=== PATIENT | male | born 1940 | race Caucasian/White ===

== ENCOUNTER → 2018-08-08 12:18 | Outpatient (CLI) | payer OTHER, SELFPAY ==
--- NOTE | 2018-08-08 | DI.RAD.S_ITS ---
PROCEDURE: XR HIP W PEL IF DONE LT 2V INDICATIONS: LEFT HIP AND THIGH PAIN TECHNIQUE: 2 views of the hip were acquired. COMPARISON: [facility], CT, LUMBAR OR SACRAL SPINE WO CONT, 12/30/2016, 15:17. [facility], CR, [id number] W PEL IF PERFORMED, 06/04/2016, 16:22. FINDINGS: Bones: No fractures or dislocations. No suspicious bony lesions. The visualized pelvic ring appears intact. Soft tissues: No suspicious soft tissue calcifications or masses. IMPRESSION: Interval left total hip arthroplasty, no evidence of device loosening or disruption. Dictated by: Denys Lassiter M.D. on 08/08/2018 at 13:14 Approved by: Denys Lassiter M.D. on 08/08/2018 at 13:15
== END ==
PROVIDERS: Family Provider Internal Medicine; Visit Provider Internal Medicine
DX: M25.552 Pain in left hip (principal); M79.652 Pain in left thigh; Z96.642 Presence of left artificial hip joint
CPT/HCPCS: 73502

== ENCOUNTER 2019-07-11 16:17 | Emergency (ER) | payer OTHER, SELFPAY ==
[2019-07-11 16:35] VITALS: BP 118/67; PULSE 67; RESP 18; TEMP 36.3; O2SAT 97
--- NOTE | 2019-07-11 16:51 | ED.URI ---
HPI - URI/Sore Throat <Umm Perez PA-C - Last Filed: 07/11/19 20:22> General Chief Complaint: Upper Respiratory Symptoms Stated Complaint: runny nose, scratchy throat, wheezing, weakness Time Seen by Provider: 07/11/19 16:39 Source: patient Mode of arrival: Wheelchair Limitations: physical limitation History of Present Illness HPI Narrative: This 78-year-old gentleman comes to ED secondary to 3 day history postnasal drainage, chest congestion, and some of productive cough. He states that these symptoms do not seem acutely worse today however he feels worse in general, with increased fatigue, mild body aches. He describes a mild air hunger sensation where he has to concentrate on taking a deep breath, but he does not feel short of breath. He states he has noticed some intermittent wheeze. He denies any chest pain. He denies any new pain or swelling in his extremities. He denies any fever, chills, or sweats. He denies any nausea or vomiting, nor any abdominal pain and states his appetite is excellent. He denies any specific exposures or recent travel. He has nasal drainage but denies earache, sore throat, sinus pain/headache. PMH/PSH: 1. Acute ischemic CVA with left hemiplegia, mild dysarthria and dysphagia 2. Hyperlipidemia 3. Hypertension 4. Coronary artery disease 5. Porcine aortic valve 6. Insomnia 7. Status post hip fracture, partial hip replacement Related Data Home Medications Medication Instructions Recorded Confirmed [CO Q 10] #0 04/27/17 [PROBIOTIC] #0 04/27/17 aspirin 162 mg PO QDAY #0 10/05/17 atorvastatin [Lipitor] 20 mg PO HS #0 10/05/17 losartan [Cozaar] 50 mg PO QDAY #0 10/05/17 Previous Rx's Medication Instructions Recorded acetaminophen 325 - 650 mg PO Q6HP PRN #30 tab 09/14/16 amlodipine [Norvasc] 5 mg PO QDAY #30 tab 09/14/16 azithromycin [Zithromax] 250 - 500 mg PO QDAY #6 tab 10/05/17 benzonatate [Tessalon Perles] 100 mg PO TID #21 cap 10/05/17 albuterol sulfate 2 puff INHALATION Q4-6H PRN #8.5 07/11/19 gram codeine-guaifenesin 5 ml PO Q4-6H PRN #100 ml 07/11/19 Allergies Allergy/AdvReac Type Severity Reaction Status Date / Time No Known Drug Allergies Allergy Verified 07/11/19 16:47 Review of Systems <Umm Perez PA-C - Last Filed: 07/11/19 20:22> Review of Systems ROS Unobtainable: All systems reviewed & are unremarkable except as noted in HPI and below PFSH <Umm Perez PA-C - Last Filed: 07/11/19 20:22> Social History Smoking Status: Former smoker Social History Smoking Status: Former smoker Exam <Umm Perez PA-C - Last Filed: 07/11/19 20:22> Narrative Exam Narrative: GENERAL APPEARANCE: Patient sitting comfortably, in no distress. HEAD: No sinus TTP. EYES: PERRL, EOMI. EARS: Normal auditory canals, TMS intact dull light reflexes ORAL CAVITY: Normal oropharynx. THROAT: No erythema or exudate, copious PND noted NECK/THYROID: Neck supple, full range of motion, no cervical lymphadenopathy. LUNGS: Breath sounds mildly congested, no clear wheezes or crackles, rare cough on exam HEART: RRR with low-pitched III/ systolic murmur, normal S1 and S2, no S3 or S4 EXTREMITIES: No cyanosis, no calf tenderness DERMATOLOGIC: No exanthem NEUROLOGIC: Patient is alert and oriented with normal speech and coordination Initial Vital Signs Initial Vital Signs: Vital Signs Temperature 97.3 F L 07/11/19 16:35 Pulse Rate 67 07/11/19 16:35 Respiratory Rate 18 07/11/19 16:35 Blood Pressure 118/67 07/11/19 16:35 Pulse Oximetry 97 07/11/19 16:35 <Jamaal Daugherty DO - Last Filed: 07/12/19 07:46> Initial Vital Signs Initial Vital Signs: Vital Signs Temperature 97.3 F L 07/11/19 16:35 Pulse Rate 67 07/11/19 16:35 Respiratory Rate 18 07/11/19 16:35 Blood Pressure 118/67 07/11/19 16:35 Pulse Oximetry 97 07/11/19 16:35 Course <Umm Perez PA-C - Last Filed: 07/11/19 20:22> Course Additional Information: No evidence of recurrent pneumonia on chest x-ray. Patient is feeling significantly improved after nebulizer treatment. He was given a prescription for inhaler as well as codeine/guaifenesin to help with cough and perhaps sleep. Advised he can add antihistamine as needed for postnasal drip and this may help with sleep as well. He complains of chronic insomnia as well which I advised he should discuss with his PCP. He agreed to return if any acutely worsening symptoms over the weekend in the interim, otherwise will follow up with PCP early next week. Orders Ordered: Discontinued Medications Albuterol (Ventolin) 2.5 mg INH NOW ONE Stop: 07/11/19 17:58 Last Admin: 07/11/19 18:08 Dose: 2.5 mg Documented by: LUCRETIA Albuterol (Ventolin Hfa Prepack) 1 box [facility] [place] ONE Stop: 07/11/19 19:03 Last Admin: 07/11/19 19:04 Dose: 1 box Documented by: JACK Vital Signs Vital signs: Vital Signs - 8 hr 07/11/19 16:35 07/11/19 18:08 07/11/19 19:04 Temperature 97.3 F L Pulse Rate 67 62 Respiratory Rate 18 16 Blood Pressure 118/67 Pulse Oximetry 97 98 97 07/11/19 19:28 Temperature Pulse Rate 76 Respiratory Rate 18 Blood Pressure 139/63 Pulse Oximetry 97 <Jamaal Daugherty DO - Last Filed: 07/12/19 07:46> Orders Ordered: Discontinued Medications Albuterol (Ventolin) 2.5 mg INH NOW ONE Stop: 07/11/19 17:58 Last Admin: 07/11/19 18:08 Dose: 2.5 mg Documented by: LUCRETIA Albuterol (Ventolin Hfa Prepack) 1 box [facility]INSTR ONE Stop: 07/11/19 19:03 Last Admin: 07/11/19 19:04 Dose: 1 box Documented by: JACK Vital Signs Vital signs: Vital Signs - 8 hr 07/11/19 16:35 07/11/19 18:08 07/11/19 19:04 Temperature 97.3 F L Pulse Rate 67 62 Respiratory Rate 18 16 Blood Pressure 118/67 Pulse Oximetry 97 98 97 07/11/19 19:28 Temperature Pulse Rate 76 Respiratory Rate 18 Blood Pressure 139/63 Pulse Oximetry 97 MDM - URI/Sore Throat <Umm Perez PA-C - Last Filed: 07/11/19 20:22> Lab Data Attestation: I reviewed the patient's lab results. Result diagrams: 07/11/19 17:11 07/11/19 17:11 Labs: Lab Results 07/11/19 07/11/19 07/11/19 Range/Units 17:00 17:11 17:11 WBC 4.4 L (4.5-11.0) X10^3/uL RBC 4.14 L (4.5-5.9) X10^6/uL Hgb 13.1 L (13.5-17.5) g/dL Hct 37.4 L (41-53) % MCV 90.2 (80-100) fL MCH 31.7 (26-34) PG MCHC 35.1 (30-36) % RDW 13.4 (11.6-14.8) % Plt Count 175 (150-400) X10^3/uL Neut % (Auto) 60.3 (50-75) % Lymph % (Auto) 25.6 (25-40) % [place] % (Auto) 9.5 (3-14) % Eos % (Auto) 3.5 (2-4) % Baso % (Auto) 1.1 (0-2) % Neut # (Auto) 2700 (4048-0810) /uL Lymph # (Auto) 1100 (4149-4349) /uL [place] # (Auto) 400 (0-900) /uL Eos # (Auto) 200 (0-450) /uL Baso # (Auto) 0 (0-100) /uL Sodium 140 (137-145) mmol/L Potassium 3.9 (3.4-5.1) mmol/L Chloride 105 (98-107) mmol/L Carbon Dioxide 26 (22-32) mmol/L BUN 18 (9-20) mg/dL Creatinine 0.90 (0.66-1.25) mg/dL Estimated GFR > 60.0 (>60) mL/min BUN/Creatinine Ratio 20.0 (6-22) Glucose 100 (80-110) mg/dL Calcium 9.7 (8.4-10.2) mg/dL Total Bilirubin 0.5 (0.2-1.3) mg/dL AST 40 (17-59) IU/L ALT 26 (21-72) IU/L Alkaline Phosphatase 64 (38-126) U/L Total Protein 7.5 (6.3-8.2) g/dL Albumin 4.3 (3.5-5.0) g/dL Globulin 3.2 (1.7-4.1) g/dL Albumin/Globulin Ratio 1.3 (1.0-2.8) Influenza A & B (PCR) Negative (Negative) Imaging Data Chest x-ray: Radiologist's impression: [address] [address] XRay Report Signed Patient: Bautista Angel [facility]#: [id number] : 3Acct:[id number] Age/Sex: 78 / MDate of Service: 07/11/19 Loc: ED Accession Number: [id number] Procedure: XR chest 2V Ordering Provider: Umm Perez P.A-C PROCEDURE: XR CHEST 2V INDICATIONS: cough, weak, h/o pneumonia TECHNIQUE: 2 views of the chest were acquired. COMPARISON: [facility] , CHEST 1 VIEW, 12/17/2016, 7:02. FINDINGS: Surgical changes and devices: Postsurgical changes are redemonstrated in the mediastinum with disruption of 3 median sternotomy wires again noted. Lungs and pleura: Lungs are clear. No pleural effusions or pneumothorax. Mediastinum: Mediastinal contours are normal. Heart size is normal. Bones and chest wall: No suspicious bony abnormalities. Soft tissues appear unremarkable. IMPRESSION: 1. No acute cardiopulmonary disease. Dictated by: Juancho Leos M.D. on 07/11/2019 at 16:48 Approved by: Juancho Leos M.D. on 07/11/2019 at 16:49 <Jamaal Daugherty DO - Last Filed: 07/12/19 07:46> Lab Data Labs: Lab Results 07/11/19 07/11/19 07/11/19 Range/Units 17:00 17:11 17:11 WBC 4.4 L (4.5-11.0) X10^3/uL RBC 4.14 L (4.5-5.9) X10^6/uL Hgb 13.1 L (13.5-17.5) g/dL Hct 37.4 L (41-53) % MCV 90.2 (80-100) fL MCH 31.7 (26-34) PG MCHC 35.1 (30-36) % RDW 13.4 (11.6-14.8) % Plt Count 175 (150-400) X10^3/uL Neut % (Auto) 60.3 (50-75) % Lymph % (Auto) 25.6 (25-40) % [place] % (Auto) 9.5 (3-14) % Eos % (Auto) 3.5 (2-4) % Baso % (Auto) 1.1 (0-2) % Neut # (Auto) 2700 (0380-6789) /uL Lymph # (Auto) 1100 (3977-8017) /uL [place] # (Auto) 400 (0-900) /uL Eos # (Auto) 200 (0-450) /uL Baso # (Auto) 0 (0-100) /uL Sodium 140 (137-145) mmol/L Potassium 3.9 (3.4-5.1) mmol/L Chloride 105 (98-107) mmol/L Carbon Dioxide 26 (22-32) mmol/L BUN 18 (9-20) mg/dL Creatinine 0.90 (0.66-1.25) mg/dL Estimated GFR > 60.0 (>60) mL/min BUN/Creatinine Ratio 20.0 (6-22) Glucose 100 (80-110) mg/dL Calcium 9.7 (8.4-10.2) mg/dL Total Bilirubin 0.5 (0.2-1.3) mg/dL AST 40 (17-59) IU/L ALT 26 (21-72) IU/L Alkaline Phosphatase 64 (38-126) U/L Total Protein 7.5 (6.3-8.2) g/dL Albumin 4.3 (3.5-5.0) g/dL Globulin 3.2 (1.7-4.1) g/dL Albumin/Globulin Ratio 1.3 (1.0-2.8) Influenza A & B (PCR) Negative (Negative) Discharge Plan Departure Patient Disposition: Home Clinical Impression: Bronchitis Reactive airway disease Qualifiers: Asthma severity: mild Asthma persistence: intermittent Asthma complication type: with acute exacerbation Qualified Code(s): J45.21 - Mild intermittent asthma with (acute) exacerbation Discharge Date/Time: 07/11/19 19:28 Activity Restrictions/Additional Instructions: Based on your exam and lab work today, I think it is most likely that you have a viral infection/bronchitis causing your drainage, cough and chest congestion. Your chest x-ray did not show pneumonia. I have prescribed some codeine cough syrup with expectorant to help with the congestion and to help you sleep. Please remember that this can make you sleepy, no driving or other activities where you need to be alert. I have also prescribed an inhaler for you to use as needed for chest tightness or cough since the breathing treatment seemed to help you here. Please use that with the spacer as often as you need. If you find that your still having difficulty sleeping due to the postnasal drip and cough, you can also add a Benadryl tablet or [id number] Zyrtec tablet at bedtime. Please follow-up with your PCP next week for recheck and to determine what may be best for treating your chronic sleep difficulty as well. As we talked about, you should return here if you have any new or acutely worsening symptoms over the weekend such as high fever or difficulty breathing, or new chest pain. Prescriptions: New codeine-guaifenesin 10-200 mg/5 mL liquid 5 ml PO Q4-6H PRN (Reason: cough/chest congestion) Qty: 100 RF: 0 albuterol sulfate 90 mcg/actuation HFA aerosol inhaler 2 puff INHALATION Q4-6H PRN (Reason: cough/shortness of breath) Qty: 8.5 RF: 0 No Action acetaminophen 325 MG tablet 325 - 650 mg PO Q6HP PRNQty: 30 RF: 0 amlodipine [Norvasc] 5 MG tablet 5 mg PO QDAY Qty: 30 RF: 0 [CO Q 10] Qty: 0 RF: 0 [PROBIOTIC] Qty: 0 RF: 0 atorvastatin [Lipitor] 20 MG tablet 20 mg PO HS Qty: 0 RF: 0 losartan [Cozaar] 50 MG tablet 50 mg PO QDAY Qty: 0 RF: 0 aspirin 81 MG tablet,delayed release (DR/EC) 162 mg PO QDAY Qty: 0 RF: 0 azithromycin [Zithromax] 250 MG tablet 250 - 500 mg PO QDAY Qty: 6 RF: 0 benzonatate [Tessalon Perles] 100 MG capsule 100 mg PO TID Qty: 21 RF: 0 Referrals: Servando Walker MD [Primary Care Provider] -
--- NOTE | 2019-07-11 17:04 | DI.RAD.S_ITS ---
PROCEDURE: XR CHEST 2V INDICATIONS: cough, weak, h/o pneumonia TECHNIQUE: 2 views of the chest were acquired. COMPARISON: [facility], , CHEST 1 VIEW, 12/17/2016, 7:02. FINDINGS: Surgical changes and devices: Postsurgical changes are redemonstrated in the mediastinum with disruption of 3 median sternotomy wires again noted. Lungs and pleura: Lungs are clear. No pleural effusions or pneumothorax. Mediastinum: Mediastinal contours are normal. Heart size is normal. Bones and chest wall: No suspicious bony abnormalities. Soft tissues appear unremarkable. IMPRESSION: 1. No acute cardiopulmonary disease. Dictated by: Juancho Leos M.D. on 07/11/2019 at 16:48 Approved by: Juancho Leos M.D. on 07/11/2019 at 16:49
[2019-07-11 17:29] LABS: Add Manual Diff / Slide Review NO; Basophils Absolute Auto 0 /uL (0-100); Basophils Percent Auto 1.1 % (0-2); Eosinophils Absolute Auto 200 /uL (0-450); Eosinophils Percent Auto 3.5 % (2-4); Hematocrit 37.4 % (41-53); Hemoglobin 13.1 g/dL (13.5-17.5); Lymphocytes Absolute Auto 1100 /uL (1100-4500); Lymphocytes Percent Auto 25.6 % (25-40); Mean Corpuscular HGB Conc 35.1 % (30-36); Mean Corpuscular Hemoglobin 31.7 PG (26-34); Mean Corpuscular Volume 90.2 fL (80-100); Monocytes Absolute Auto 400 /uL (0-900); Monocytes Percent Auto 9.5 % (3-14); Neutrophils Absolute Auto 2700 /uL (1500-7000); Neutrophils Percent Auto 60.3 % (50-75); Platelet Count 175 X10^3/uL (150-400); Red Blood Cell Count 4.14 X10^6/uL (4.5-5.9); Red Cell Distribution Width 13.4 % (11.6-14.8); White Blood Cell Count 4.4 X10^3/uL (4.5-11.0)
[2019-07-11 17:42] LABS: Influenza A and B by PCR Rapid Negative (Negative)
[2019-07-11 17:54] LABS: Alanine Aminotransferase 26 IU/L (21-72); Albumin 4.3 g/dL (3.5-5.0); Albumin Globulin Ratio 1.3 (1.0-2.8); Alkaline Phosphatase 64 U/L (38-126); Aspartate Aminotransferase 40 IU/L (17-59); Bilirubin Total 0.5 mg/dL (0.2-1.3); Blood Urea Nitrogen 18 mg/dL (9-20); Calcium 9.7 mg/dL (8.4-10.2); Carbon Dioxide 26 mmol/L (22-32); Chloride 105 mmol/L (98-107); Estimated Glomerular Filt Rate > 60.0 mL/min (>60); Globulin 3.2 g/dL (1.7-4.1); Glucose 100 mg/dL (80-110); HEMOLYSIS < 15 (0-50); Potassium 3.9 mmol/L (3.4-5.1); Sodium 140 mmol/L (137-145); Total Protein 7.5 g/dL (6.3-8.2)
[2019-07-11 18:08] VITALS: PULSE 62; RESP 16; O2SAT 98
[2019-07-11] MEDS: ALBUTEROL 2.5 MG/3 ML NEB (ADULT) INH (18:08)
[2019-07-11 19:04] VITALS: O2SAT 97
[2019-07-11] MEDS: ALBUTEROL HFA PREPACK 1 BOX MISC (19:04)
[2019-07-11 19:28] VITALS: BP 139/63; PULSE 76; RESP 18; O2SAT 97
== END 2019-07-11 19:28 | disposition home or self-care (01) ==
PROVIDERS: Emergency Provider Internal Medicine; PCP Internal Medicine
DX: J40 Bronchitis, not specified as acute or chronic (principal); J45.21 Mild intermittent asthma with (acute) exacerbation
CPT/HCPCS: 36415; 71046; 80053; 85025; 87400; 94640; 99282; 99284; J7613

== ENCOUNTER 2019-12-30 15:08 | Observation (INO) | payer MEDICARE, SELFPAY ==
[2019-12-30] VITALS (10 sets, daily range): BP systolic 122–180; BP diastolic 59–87; PULSE 57–74; RESP 16–28; TEMP 36.3–37.4; O2SAT 96–99; BMI 34.4
--- NOTE | 2019-12-30 | DI.ECHO.S_ITS ---
[place]---------+ [facility] +---------+ : : [address] [place] [address] : : : : [id number] : : : : Phone: [phone] Echocardiogram Report + + :Name: PERICO LUNSFORD Study Date: 12/31/2019 Height: 70 in : :[facility] Weight: 240 lb : : Gender: Male BSA: 2.3 m2 : :: 1940 Age: 79 yrs BP: 131/64 mmHg: :Reason For Study: NATE : :Ordering Physician: Jose Miguel : :Hospitalist Performed By: Марина Mtz : :Referring: EDA BLOOM : + + Interpretation Summary The study quality was technically difficult. The left ventricular ejection fraction is normal. There are no obvious focal wall motion abnormalities noted but poor endocardial definition reduces the sensitivity for the detection of such. The right ventricle is normal in size and function. There is a bioprosthetic aortic valve. The prosthetic aortic valve is not well visualized. The aortic valve mean gradient is 28 mmHg. The peak aortic velocity is 3.5 m/sec.The peak aortic velocity on the previous exam was 3.1 m/sec. The valve type is not known but in some valves this gradient can be normal. Overall a severe obstruction is unlikely given stable gradients, DVI of 0.38 and jet contour. Procedure: A two-dimensional transthoracic echocardiogram with color flow and Doppler was performed. Comparison is made with the echocardiogram of 09/12/2016. The study quality was technically difficult. Left Ventricle: The left ventricle is normal in size. Left ventricular wall thickness is mildly increased. The ejection fraction is estimated to be 60- 65%. The left ventricular ejection fraction is normal. There are no obvious focal wall motion abnormalities noted but poor endocardial definition reduces the sensitivity for the detection of such. Diastolic parameters suggest a relaxation abnormality of the left ventricle, consistent with probable normal filling pressures. Right Ventricle: The right ventricle is normal in size and function. Atria: Both atria are normal in size. There is no Doppler evidence for an interatrial shunt. Mitral Valve: The mitral valve leaflets appear mildly thickened, but open well. There is mild mitral annular calcification. There is mild mitral regurgitation. Aortic Valve: There is a bioprosthetic aortic valve. The prosthetic aortic valve is not well visualized. The aortic valve mean gradient is 28 mmHg. The peak aortic velocity is 3.5 m/sec. The peak aortic velocity on the previous exam was 3.1 m/sec. No aortic regurgitation is present. Tricuspid Valve: The tricuspid valve is normal in structure and function. There is a trace or physiologic amount of tricuspid regurgitation. Pulmonary artery pressures cannot be estimated because of the lack of a measurable TR jet velocity. Pulmonic Valve: The pulmonic valve is not well visualized. Great Vessels: The aortic root is not well visualized. The ascending aorta could not be visualized. The inferior vena cava was not visualized. Pericardium/ Pleura There is no pericardial effusion. There is no pleural effusion. MMode/2D Measurements & Calculations LVIDd: 4.2 cm LVOT diam: 2.1 cm LVIDs: 3.1 cm Ao Arch Diam (Prox Trans): 2.9 cm FS: 25.6 % EPSS: 0.94 cm IVSd: 1.1 cm LVPWd: 1.2 cm LV rosales. diameter/BSA (cm/m^2): 1.9 LV sys. diameter/BSA (cm/m^2): 1.4 LA A2 area: 17.1 cm2 RA long axis: 5.2 cm LA A4 area: 15.1 cm2 RA area: 17.7 cm2 LA length (vol): 5.7 cm RA vol: 51.1 ml LA vol: 38.7 ml RA : 22.6 ml/m2 LA vol index: 17.2 ml/m2 RVD1 (basal): 3.8 cm TAPSE: 2.0 cm Doppler Measurements & Calculations Ao V2 max: 351.8 cm/sec LVOT Max Neto: 117.9 cm/sec Ao V2 mean: 244.9 cm/sec LV V1 max P.6 mmHg Ao max P.5 mmHg LV V1 VTI: 28.1 cm Ao mean P.1 mmHg ISAMAR(I,D): 1.3 cm2 Ao V2 VTI: 73.4 cm ISAMAR(V,D): 1.1 cm2 sev ratio: 0.38 ISAMAR indexed to BSA (cm^2/m^2): 0.56 MV A max neto: 81.2 cm/sec PA V2 max: 102.9 cm/sec Med Peak E' Neto: 48.4 cm/sec PA V2 mean: 64.3 cm/sec Lat Peak E' Neto: 10.7 cm/sec PA mean P.0 mmHg MV dec time: 0.28 sec PA Accel Time: 0.10 sec SV(LVOT): 93.1 ml Electronically signed by: Juan C Charles M.D. on Reading Physician:12/31/2019 11:55 AM
--- NOTE | 2019-12-30 15:13 | DI.CT.S_ITS ---
PROCEDURE: CT STROKE INDICATIONS: 45min Right hand and face numbness TECHNIQUE: Noncontrast 4.5 mm thick angled axial sections acquired from the foramen magnum to the vertex, with coronal reformats. For radiation dose reduction, the following was used: automated exposure control, adjustment of mA and/or kV according to patient size. COMPARISON: None. FINDINGS: Image quality: Excellent. CSF spaces: Basal cisterns are patent. No extra-axial fluid collections. The ventricles are symmetric in size and shape. Brain: No intracranial bleeds or masses. There is cerebral volume loss for age, with resultant ventricular and sulcal prominence. There are periventricular and deep white matter chronic small vessel ischemic changes. There is intracranial internal carotid artery atherosclerosis. Skull and face: Calvarium and visualized facial bones appear intact, without suspicious lesions. Status post left mastoidectomy. IMPRESSION: No acute intracranial process. Findings were personally telephoned and discussed with Dr. Panda in the emergency department at 1532 hrs 12/30/19. This study fulfills neurological imaging criteria for inclusion or exclusion of acute stroke therapies based on available published neurological guidelines. Dictated by: Joel Maxwell M.D. on 12/30/2019 at 15:29 Approved by: Joel Maxwell M.D. on 12/30/2019 at 15:35
--- NOTE | 2019-12-30 15:15 | ED.NEUROSD ---
HPI - Neuro Symptoms/Deficit General Chief Complaint: Neuro Symptoms/Deficit Stated Complaint: sudden right sided weakness Time Seen by Provider: 12/30/19 15:13 History of Present Illness HPI Narrative: 79-year-old gentleman with a history of an ischemic stroke with residual left sided weakness dysarthria and dysphagia, hyperlipidemia, hypertension, coronary artery disease, aortic valve replacement who presents with 45 minutes of right-sided hand and face numbness with clumsiness to the right hand. Code stroke was called. By time arrival in the emergency department he is having some numbness only to the dorsum of the right hand with no residual motor deficits. Related Data Home Medications Medication Instructions Recorded Confirmed CoQ-10 1 cap PO DAILY #0 04/27/17 12/30/19 Probiotic 1 cap PO DAILY #0 04/27/17 12/30/19 losartan [Cozaar] 50 mg PO DAILY #0 10/05/17 12/30/19 amlodipine [Norvasc] 5 mg PO DAILY 12/30/19 12/30/19 baclofen 10 mg PO QPM 12/30/19 12/30/19 cholecalciferol (vitamin D3) 5,000 unit PO DAILY 12/30/19 12/30/19 [Vitamin D3] [id number] 1 tab PO DAILY 12/30/19 12/30/19 [Multivitamin 50 Plus] rosuvastatin 10 mg PO DAILY 12/30/19 12/30/19 sertraline 50 mg PO QPM 12/30/19 12/30/19 Previous Rx's Medication Instructions Recorded acetaminophen 325 - 650 mg PO Q6HP PRN #30 tab 09/14/16 albuterol sulfate 2 puff INHALATION Q4-6H PRN #8.5 07/11/19 gram Allergies Allergy/AdvReac Type Severity Reaction Status Date / Time No Known Drug Allergies Allergy Verified 12/30/19 15:30 Review of Systems Review of Systems Narrative: Denies ? fever ? cough ? cold ? chills ? chest pain ? dyspnea ? orthopnea ? wheezing ? abdominal pain ? change to bowel or bladder habits ? nausea vomiting ? skin changes ? rashes Patient History Medical History (Updated 12/30/19 @ 17:36 by Shayna Panda MD) CVA (cerebral vascular accident) (Acute) Hyperlipidemia (Acute) Hypertension (Acute) Social History Smoking Status: Former smoker Smoking Status: Former smoker alcohol intake frequency: holidays/special occasions only Substance Use Type: does not use Exam Narrative Exam Narrative: General: Healthy appearing, in no acute distress. Able to give a complete and coherent history. Well-nourished well-developed HEENT: Moist mucous membranes, normal sclera with reactive pupils, Neck: No JVD, supple Respiratory: Lungs are clear to auscultation, no wheezing no rales no rhonchi. Full and symmetrical air movement Cardiac: Regular rate and rhythm no murmurs no bruits Abdomen: Soft nontender good bowel tones, no flank pain Skin: Warm and dry, no rashes Neurologic: Residual left arm and left leg weakness with normal sensation., no facial droop, no tongue deviation, no facial sensory deficits, he does note some minor numbness still to the dorsum of the right hand that begins just proximal to the wrist, there is no weakness in the right upper or lower extremity Extremities: No trauma, well perfused Psych: Cooperative, appropriate insight and affect Initial Vital Signs Initial Vital Signs: Vital Signs Temperature 97.5 F L 12/30/19 15:10 Pulse Rate 73 12/30/19 15:10 Respiratory Rate 28 H 12/30/19 15:10 Blood Pressure 146/71 H 12/30/19 15:10 Pulse Oximetry 98 12/30/19 15:10 Course Orders Ordered: ED Orders 12/30/19 15:13 CT Stroke Stat Urine Drug Screen, Rapid Stat EKG-12 Lead Stat 12/30/19 16:06 Basic Metabolic Panel Stat Complete Blood Count AUTO DIFF Stat Partial Thromboplastin Time Stat Prothrombin Time INR Stat Sodium Chloride (Normal Saline 0.9%) 1,000 mls @ 150 mls/hr IV CONT REYAN Vital Signs Vital signs: Vital Signs - 8 hr 12/30/19 15:10 Temperature 97.5 F L Pulse Rate 73 Respiratory Rate 28 H Blood Pressure 146/71 H Pulse Oximetry 98 MDM - Neuro Symptoms/Deficit Medical Records Attestation: I reviewed the patient's medical records. Lab Data Attestation: I reviewed the patient's lab results. Result diagrams: 12/30/19 16:06 12/30/19 16:06 Labs: Lab Results 12/30/19 12/30/19 12/30/19 Range/Units 16:06 16:06 16:06 WBC 5.6 (4.5-11.0) X10^3/uL RBC 4.37 L (4.5-5.9) X10^6/uL Hgb 13.9 (13.5-17.5) g/dL Hct 39.4 L (41-53) % MCV 90.2 (80-100) fL MCH 31.8 (26-34) PG MCHC 35.3 (30-36) % RDW 13.9 (11.6-14.8) % Plt Count 190 (150-400) X10^3/uL Neut % (Auto) 64.3 (50-75) % Lymph % (Auto) 20.7 L (25-40) % [place] % (Auto) 9.6 (3-14) % Eos % (Auto) 4.3 H (2-4) % Baso % (Auto) 1.1 (0-2) % Neut # (Auto) 3600 (2956-7206) /uL Lymph # (Auto) 1200 (7710-7622) /uL [place] # (Auto) 500 (0-900) /uL Eos # (Auto) 200 (0-450) /uL Baso # (Auto) 100 (0-100) /uL PT 12.4 (10.1-12.7) SECONDS INR 1.1 (0.9-1.3) APTT 29 (26.4-36.2) SECONDS Sodium 140 (137-145) mmol/L Potassium 4.0 (3.4-5.1) mmol/L Chloride 106 (98-107) mmol/L Carbon Dioxide 27 (22-32) mmol/L BUN 13 (9-20) mg/dL Creatinine 0.62 L (0.66-1.25) mg/dL Estimated GFR > 60.0 (>60) mL/min BUN/Creatinine Ratio 21.0 (6-22) Glucose 103 (80-110) mg/dL Calcium 9.9 (8.4-10.2) mg/dL Point of Care Testing Glucose POC [address] scan - head: Radiologist's Impression: IMPRESSION: No acute intracranial process. Findings were personally telephoned and discussed with Dr. Panda in the emergency department at 1532 hrs 12/30/19. This study fulfills neurological imaging criteria for inclusion or exclusion of acute stroke therapies based on available published neurological guidelines. Dictated by: Joel Maxwell M.D. on 12/30/2019 at 15:29 ECG Data Attestation: I personally reviewed and interpreted this ECG as follows: Interpretation: Sinus rhythm at a rate of 69 First-degree AV block with normal axis No acute ischemic findings MDM Narrative Medical decision making narrative: 79-year-old gentleman of still with residual left-sided deficits deficits from a stroke in 2016. TIA type symptoms with right facial weakness numbness right hand weakness and numbness now with only mild numbness to the dorsum of the right hand. Initial CT and lab work is unremarkable. Would like to admit him for continued workup and observation with a diagnosis of TIA. He is not anticoagulated. He could still be an excellent tPA candidate should he have worsening symptoms of stroke over the next 24 hours. Patient's primary care physician is Dr. Walker, he will be admitted to the hospitalist service [id number] case is reviewed with Dr. Parry, she accepts admission Discharge Plan Departure Patient Disposition: Admitted as Observation Clinical Impression: Transient cerebral ischemia Qualifiers: Transient cerebral ischemia type: unspecified Qualified Code(s): G45.9 - Transient cerebral ischemic attack, unspecified Referrals: Servando Walker MD [Primary Care Provider] -
[2019-12-30 16:18] LABS: Add Manual Diff / Slide Review NO; Basophils Absolute Auto 100 /uL (0-100); Basophils Percent Auto 1.1 % (0-2); Eosinophils Absolute Auto 200 /uL (0-450); Eosinophils Percent Auto 4.3 % (2-4); Hematocrit 39.4 % (41-53); Hemoglobin 13.9 g/dL (13.5-17.5); Lymphocytes Absolute Auto 1200 /uL (1100-4500); Lymphocytes Percent Auto 20.7 % (25-40); Mean Corpuscular HGB Conc 35.3 % (30-36); Mean Corpuscular Hemoglobin 31.8 PG (26-34); Mean Corpuscular Volume 90.2 fL (80-100); Monocytes Absolute Auto 500 /uL (0-900); Monocytes Percent Auto 9.6 % (3-14); Neutrophils Absolute Auto 3600 /uL (1500-7000); Neutrophils Percent Auto 64.3 % (50-75); Platelet Count 190 X10^3/uL (150-400); Red Blood Cell Count 4.37 X10^6/uL (4.5-5.9); Red Cell Distribution Width 13.9 % (11.6-14.8); White Blood Cell Count 5.6 X10^3/uL (4.5-11.0)
[2019-12-30 16:26] LABS: INR 1.1 (0.9-1.3); Prothrombin Time 12.4 SECONDS (10.1-12.7)
[2019-12-30 16:28] LABS: PTT Partial Thromboplastin Tim 29 SECONDS (26.4-36.2)
[2019-12-30 16:33] LABS: Blood Urea Nitrogen 13 mg/dL (9-20); Calcium 9.9 mg/dL (8.4-10.2); Carbon Dioxide 27 mmol/L (22-32); Chloride 106 mmol/L (98-107); Estimated Glomerular Filt Rate > 60.0 mL/min (>60); Glucose 103 mg/dL (80-110); HEMOLYSIS < 15 (0-50); Sodium 140 mmol/L (137-145)
[2019-12-30] MEDS: SODIUM CHLORIDE 0.9% 1,000 ML 150 ML IV ×2 (17:56→22:38)
--- NOTE | 2019-12-30 18:09 | PC.NURSE ---
patient had cva 4 years ago and it affected the left side of body.
[2019-12-30 19:09] LABS: UR Morphine/Opiate cutoff 300 Negative (Negative); Ur Creatinine Normal (Normal); Ur Specific Gravity Normal (Normal); Urine Amphetamines Negative (Negative); Urine Barbiturates Negative (Negative); Urine Benzodiazepines Negative (Negative); Urine Cocaine Negative (Negative); Urine MDMA Negative (Negative); Urine Methadone Negative (Negative); Urine Methamphetamines Negative (Negative); Urine Oxycodone Negative (Negative); Urine Phencyclidine Negative (Negative); Urine Tetrahydrocannabinol Negative (Negative); Urine Tricyclic Antidepressant Negative (Negative); Urine pH Normal (Normal)
[2019-12-30 20:09] LABS: Cholesterol 175 mg/dL (140-199); HDL Cholesterol 55 mg/dL (40-60); LDL Cholesterol Calculated 93 mg/dL (<100); Magnesium 2.2 mg/dL (1.6-2.3); Triglycerides 137 mg/dL (35-150)
[2019-12-30] MEDS: ASPIRIN 81 MG CHEW TAB 324 MG PO (20:57)
--- NOTE | 2019-12-30 21:55 | PM.HP.1 ---
History of Present Illness History of Present Illness Date Patient Seen: 12/30/19 Time Patient Seen: 21:35 Chief complaint: sudden right sided weakness Narrative: Mr. Bautista Angel is a 79-year-old male with a past medical history significant for prior CVA with left-sided weakness (2015), cardiovascular disease status post CABG x1, heart valve disease status post aortic valve replacement with porcine valve, hypertension, hyperlipidemia, vertigo and frequent falls presents to the ER after experiencing right-sided facial numbness and right hand numbness with impaired movement and dexterity and lightheadedness for 45 minutes. He denies headache or visual changes, nausea diaphoresis. The patient has a history of CV with residual left-sided weakness mild dysarthria and dysphagia. While in the ER the patient states his symptoms are diminishing but still present. The patient additionally reports that unbeknownst to him his had stopped giving him his aspirin for an unknown period of time. The patient denies recent illness nasal congestion sore throat or fevers. He states he has had chills for a long time. He denies complaints of chest pain or palpitations and has had no shortness of breath cough or wheezing. He denies abdominal pain, heartburn, nausea vomiting. He states he has had constipation in the past but has corrected that by drinking sufficient water. He does report difficulty urinating with difficulty starting and stopping a stream small voids and nocturia 6-8 times nightly. Patient has minimal motion of his left arm but is able to ambulate with a walker. Upon arrival the ER he is afebrile with temperature 97.5?, heart rate is 73, blood pressure 146/71, respirations of 18 saturating 98% on room air. Status CT of the head is obtained which finds no acute intracranial pathology, cerebral volume loss for age, periventricular and deep white matter chronic small vessel ischemic changes. Twelve lead EKG finds normal sinus rhythm with a first-degree AV block at [address] or T-wave changes. On laboratory analysis the patient has white count of 5.6, hemoglobin 13.9, hematocrit 39.4 and platelets of 190. On coagulation he has a PT of 12.4, INR 1.1 and a PTT of 29. His electrolytes are all within normal limits and has a BUN of 13 and creatinine 0.62. Nonfasting glucose is 103. Toxicology screening is negative. On 12/25/2019 the patient had a TSH of 5.76 and T4 of 1.22. No interventions were pursued in the ER the patient is admitted to the medicine service for TIA versus CVA. Patient History Medical History (Updated 12/31/19 @ 00:04 by CHATO Ellis) Coronary artery disease (Acute) CVA (cerebral vascular accident) (Acute) Fractured hip (Acute) Frequent falls (Acute) Heart valve disease (Acute) Hyperlipidemia (Acute) Hypertension (Acute) Vertigo (Acute) Surgical History (Updated 12/31/19 @ 00:04 by CHATO Ellis) H/O aortic valve replacement (Acute) History of coronary artery bypass graft x 1 (Acute) History of hip surgery (Acute) Family & Social History Family History (Updated 12/31/19 @ 00:06 by CHATO Ellis) Father Diabetes mellitus Hypertension Coronary artery disease Mother Coronary artery disease Heart attack Social History: household members spouse Prior Living Arrangements House Safety & Behavioral: Feels Safe in Current Yes Environment Been Physically Hurt or No Threatened By a Person Suicidal Ideation Description None Suicide Plan Description No Plan Tobacco & Substance use: Smoking Status Former smoker alcohol intake frequency holiday/special occasion Substance Use Type does not use Comment: The patient this with his to whom he has been for 27 years in a 2 level house with a ramp leading into the front door. Provides history is father having diabetes hypertension and coronary artery disease. His mother had cardiac disease and following an OK. Smoking: Patient quit smoking at age 32 before which she was smoking 3 packs per day. He stopped for many years and now smokes 1 cigar daily. Alcohol: The patient endorses consuming 4 alcoholic beverages per week. Substance use: The patient denies recreation pharmaceuticals herbal or cannabis products. Advanced directives: The patient states he has formal advanced directives and states his wish to be DO NOT RESUSCITATE/DO NOT INTUBATE. He designates his to be his surrogate decision maker. Meds Home Medications and Allergies Home Medications Medication Instructions Recorded Confirmed Type acetaminophen 325 - 650 mg PO Q6HP PRN #30 tab 09/14/16 12/30/19 Rx CoQ-10 1 cap PO DAILY #0 04/27/17 12/30/19 History Probiotic 1 cap PO DAILY #0 04/27/17 12/30/19 History losartan [Cozaar] 50 mg PO DAILY #0 10/05/17 12/30/19 History amlodipine [Norvasc] 5 mg PO DAILY 12/30/19 12/30/19 History baclofen 10 mg PO QPM 12/30/19 12/30/19 History cholecalciferol (vitamin D3) 5,000 unit PO DAILY 12/30/19 12/30/19 History [Vitamin D3] [id number] 1 tab PO DAILY 12/30/19 12/30/19 History [Multivitamin 50 Plus] rosuvastatin 10 mg PO DAILY 12/30/19 12/30/19 History sertraline 50 mg PO QPM 12/30/19 12/30/19 History Allergies Allergy/AdvReac Type Severity Reaction Status Date / Time No Known Drug Allergies Allergy Verified 12/30/19 15:30 Review of Systems Review of Systems ROS: Yes All systems reviewed with the patient and are negative except as otherwise documented Exam Vital Signs (past 8 hours): - 12/30/19 15:10 12/30/19 15:25 12/30/19 15:40 Temperature 97.5 F L Pulse Rate 73 74 71 Respiratory Rate 28 H 16 18 Blood Pressure 146/71 H Blood Pressure [Left Arm] 146/71 H 143/70 H Pulse Oximetry 98 98 98 12/30/19 16:30 12/30/19 17:31 12/30/19 18:00 Temperature Pulse Rate 63 68 63 Respiratory Rate 16 16 16 Blood Pressure Blood Pressure [Left Arm] 135/64 180/80 H 138/63 Pulse Oximetry 97 98 98 12/30/19 18:30 Temperature 99.4 F Pulse Rate 57 L Respiratory Rate 19 Blood Pressure 170/87 H Blood Pressure [Left Arm] Pulse Oximetry 99 Oxygen Delivery Method Room Air Oxygen Flow Rate 0 Narrative Exam Narrative: GENERAL APPEARANCE: well developed, obese male with a BMI of 34.8 who is sitting up in bed in no acute distress. HEENT: Symmetrical facies, no ptosis, PERRLA, conjunctiva clear and sclera is anicteric, EOMs intact without nystagmus, no rhinorrhea, mucous membranes are moist and pink without lesions or exudate. NECK/THYROID: neck supple, no JVD, no carotid bruit, no thyromegaly, trachea midline. LYMPH NODES: no cervical or supraclavicular lymphadenopathy. SKIN: Goodell, warm and dry, no visible lesions, rashes, ulcerations or petechiae. HEART: regular rate and rhythm, S1-S2, no murmur, no rubs or gallops, brisk capillary refill, no edema LUNGS: clear to auscultation bilaterally, no coarseness crackles or wheezing, no cough present CHEST: Symmetrical movement, no accessory muscle use, good tidal volume. ABDOMEN: Soft, no distention, no abdominal tenderness, no guarding or peritoneal signs, no organomegaly, no flank or suprapubic tenderness, active bowel tones. BACK: Normal curvature, nontender to palpation, no CVA tenderness on percussion EXTREMITIES: Weakness with decreased range of motion left arm at the shoulder and elbow, no contractures, weak left leg left. NEUROLOGIC: AAO x4, briskly responsive, no aphasia, mild dysarthria, cranial nerves II-XII grossly intact, diminished sensation right arm and leg, diminished dexterity without ataxia of the right hand or leg, hearing grossly normal to speech. PSYCH: Good judgment, good insight, linear thought process, cooperative, appropriate with stable behavior Objective Labs Result Diagrams: 12/30/19 16:06 12/30/19 16:06 Labs: Laboratory Results - last 24 hr 12/30/19 12/30/19 12/30/19 16:00 16:06 16:06 WBC 5.6 RBC 4.37 L Hgb 13.9 Hct 39.4 L MCV 90.2 MCH 31.8 MCHC 35.3 RDW 13.9 Plt Count 190 Neut % (Auto) 64.3 Lymph % (Auto) 20.7 L [place] % (Auto) 9.6 Eos % (Auto) 4.3 H Baso % (Auto) 1.1 Neut # (Auto) 3600 Lymph # (Auto) 1200 [place] # (Auto) 500 Eos # (Auto) 200 Baso # (Auto) 100 PT 12.4 INR 1.1 APTT 29 Sodium Potassium Chloride Carbon Dioxide BUN Creatinine Estimated GFR BUN/Creatinine Ratio Glucose Calcium Magnesium Triglycerides Cholesterol LDL Cholesterol, Calc HDL Cholesterol U Opiates 300ng/mL cut Negative Ur Oxycodone Screen Negative Urine Methadone Screen Negative Ur Barbiturates Screen Negative U Tricyclic Antidepress Negative Ur Phencyclidine Scrn Negative Ur Amphetamines Screen Negative U Methamphetamines Scrn Negative Ur MDMA Scrn (Ecstasy) Negative U Benzodiazepines Scrn Negative Urine Cocaine Screen Negative U Marijuana (THC) Screen Negative 12/30/19 12/30/19 12/30/19 16:06 16:06 16:06 WBC RBC Hgb Hct MCV MCH MCHC RDW Plt Count Neut % (Auto) Lymph % (Auto) [place] % (Auto) Eos % (Auto) Baso % (Auto) Neut # (Auto) Lymph # (Auto) [place] # (Auto) Eos # (Auto) Baso # (Auto) PT INR APTT Sodium 140 Potassium 4.0 Chloride 106 Carbon Dioxide 27 BUN 13 Creatinine 0.62 L Estimated GFR > 60.0 BUN/Creatinine Ratio 21.0 Glucose 103 Calcium 9.9 Magnesium 2.2 Triglycerides 137 Cholesterol 175 LDL Cholesterol, Calc 93 HDL Cholesterol 55 U Opiates 300ng/mL cut Ur Oxycodone Screen Urine Methadone Screen Ur Barbiturates Screen U Tricyclic Antidepress Ur Phencyclidine Scrn Ur Amphetamines Screen U Methamphetamines Scrn Ur MDMA Scrn (Ecstasy) U Benzodiazepines Scrn Urine Cocaine Screen U Marijuana (THC) Screen Assessment & Plan Assessment & Plan narrative: 1. TIA, probable CVA, present on admission, active. Patient presents to the ER following 45 minutes of right-sided facial numbness, right hand numbness and loss of dexterity with associated lightheadedness. Patient denies headache, visual changes, nausea or diaphoresis. He reports symptoms have improved but persist. 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 NIH score is 7 with pre-existing left-sided weakness and dysarthria. Patient reports that his had stopped his aspirin without his knowledge, does not know for how long. -Ordered aspirin 324 mg chewed now, continue aspirin 81 mg daily. -Physical Occupational and Speech therapy to consult evaluate and treat. -Ordered MRI stroke protocol, patient has porcine prosthetic heart valve. -Ordered echocardiogram. -Will check TSH with morning labs. 2. Hyperlipidemia, chronic, present on admission, active. -Patients cholesterol today: Total cholesterol 175, triglycerides 137, LDL 93 and HDL 55. -Will increase the patient's uses an statin dose to target reduction in LDL, ordered rosuvastatin 20 mg daily. 3. Benign prostatic hypertrophy with lower urinary tract symptoms, present on admission, active. -Patient complains of difficulty urinating with weak urinary stream, voiding stopping and revoiding, difficulty starting and stopping, dribbling, and nocturia 6-8 times nightly. He describes feeling the need to void and the sense of incomplete emptying. -will obtain urinalysis -will start tamsulosin 0.4 mg daily 4. Essential hypertension, present on admission, stable. -Patient has slightly elevated blood pressure on arrival to the ER at 146/71. Later on the floor the blood pressure is 122/59. -Will continue patient's home regimen of amlodipine 5 mg daily and losartan 50 mg daily. 5. Muscle spasticity, chronic, stable. -Will continue patient's home regimen of baclofen 10 mg daily. VTE prophylaxis: Bilateral SCDs and enoxaparin IV fluid: Saline lock Diet: Heart healthy low-sodium The patient is admitted to the hospital for further evaluation and monitoring of his no neurological deficits. Patient is admitted as observation with expected length of stay to be less than 2 midnights. Scores GCS [place] coma scale eye opening: Spontaneous [place] coma scale verbal response: Orientated Nancy coma scale motor response: Obey commands Nancy coma scale total score: 15 NIHSS Level of Conciousness: Alert, keenly responsive Ask month/age: Answers both questions correctly. Open/close eyes, close hand: Performs both tasks correctly Best gaze horizontal: Normal Visual castellanos: No visual loss Facial palsy: Normal symetrical movement Left arm drift: Some effort against gravity, cannot maintain, drifts down to bed Right arm drift: No drift for full 10 sec Left leg drift: Some effort against gravity, cannot maintain, drifts down to bed Right leg drift: No drift for full 5 sec Limb ataxia: Present in one limb Sensory on face/arms/legs: Mild to moderate sensory loss, can tell touch Best language: No aphasia, normal Dysarthria: Mild to mod,some slurring Extinction or inattention: No abnormality Total NIH Stroke scale score: 7 Quality VTE Deep Vein Thrombosis/Pulmonary Embolism Present on Admission: Yes
[2019-12-30] MEDS: TAMSULOSIN 0.4 MG CAPSULE PO (22:37)
[2019-12-31] VITALS (7 sets, daily range): BP systolic 123–142; BP diastolic 60–77; PULSE 63–94; RESP 16–20; TEMP 35.9–36.7; O2SAT 96–99
[2019-12-31 04:30] LABS: WBC Urine None Seen (0-5/HPF)
[2019-12-31 04:33] LABS: Appearance Urine UA CLEAR; Bilirubin Urine UA NEGATIVE (NEGATIVE); Color Urine UA YELLOW; Glucose Urine UA NEGATIVE (Negative); Ketones Urine UA NEGATIVE (NEGATIVE); Leukocyte Esterase Urine UA NEGATIVE (NEGATIVE); Nitrite Urine UA NEGATIVE (Negative); Occult Blood Urine UA NEGATIVE (Negative); Protein Urine UA NEGATIVE (Negative); Urobilinogen Urine UA 0.2 E.U./dL (0.2); pH Urine UA 5.5 (4.5-8.0)
[2019-12-31 04:41] LABS: Bacteria Urine Occasional (0-1); Culture Indicated Urine Cult Not Indicated; RBC Urine 0-1/HPF (0-5/HPF)
--- NOTE | 2019-12-31 05:12 | PC.NURSE ---
Right sided weakness is new for patient, although he feels it is resolving. Left sided weakness and left arm contracture at baseline from previous stoke. NIH=8 UA sent. Voiding in urinal, clear dark yellow urine. No pain Tele: NSR, 1st AVB; Heart murmur noted. denies chest pain B/L SCDs on
[2019-12-31 06:09] LABS: Add Manual Diff / Slide Review NO; Basophils Absolute Auto 0 /uL (0-100); Basophils Percent Auto 0.9 % (0-2); Eosinophils Absolute Auto 300 /uL (0-450); Eosinophils Percent Auto 5.1 % (2-4); Hematocrit 36.6 % (41-53); Hemoglobin 12.8 g/dL (13.5-17.5); Lymphocytes Absolute Auto 1100 /uL (1100-4500); Lymphocytes Percent Auto 20.6 % (25-40); Mean Corpuscular Hemoglobin 31.6 PG (26-34); Mean Corpuscular Volume 90.3 fL (80-100); Monocytes Absolute Auto 500 /uL (0-900); Monocytes Percent Auto 8.9 % (3-14); Neutrophils Absolute Auto 3400 /uL (1500-7000); Neutrophils Percent Auto 64.5 % (50-75); Platelet Count 166 X10^3/uL (150-400); Red Blood Cell Count 4.05 X10^6/uL (4.5-5.9); Red Cell Distribution Width 13.5 % (11.6-14.8); White Blood Cell Count 5.3 X10^3/uL (4.5-11.0)
[2019-12-31 06:38] LABS: BUN Creatinine Ratio 14.7 (6-22); Blood Urea Nitrogen 10 mg/dL (9-20); Calcium 9.5 mg/dL (8.4-10.2); Carbon Dioxide 27 mmol/L (22-32); Chloride 109 mmol/L (98-107); Estimated Glomerular Filt Rate > 60.0 mL/min (>60); Glucose 106 mg/dL (80-110); HEMOLYSIS < 15 (0-50); Sodium 140 mmol/L (137-145)
[2019-12-31] MEDS: ENOXAPARIN 40 MG/0.4 ML SYRINGE SUBCUT (09:51)
[2019-12-31] MEDS: ROSUVASTATIN 10 MG TABLET 20 MG PO (09:51)
[2019-12-31] MEDS: TAMSULOSIN 0.4 MG CAPSULE PO (09:51)
[2019-12-31] MEDS: LOSARTAN 50 MG TABLET PO (09:51)
[2019-12-31] MEDS: ASPIRIN EC 81 MG TABLET PO (09:51)
[2019-12-31] MEDS: AMLODIPINE 5 MG TABLET PO (09:51)
--- NOTE | 2019-12-31 10:30 | CM.DANOTE ---
DCP assessment: EMR Reviewed: Patient is a 79 yr old male who was admitted for possible TIA- Patients PCP is Dr Walker. CM/RN met with patient and family at the bedside and explained Role. Patient was alert and oriented x3 at time of CM meeting. Patient is independent at baseline but patients does all the driving. Patient walks with a cane or a walker due to left sided weakness from previous TIA. Patient had an Echo this morning and is waiting on an MRI and PT/ OT evaluation. Patient currently lives in a two story home but has ramp into the home and has no need to go to second story according to . I: [employer] MCR and self pay P: D/C home when medically stable with his . No identified D/C planning needs noted at this time. CM department will continue to follow and assist with any D/C planning needs that may arise. Irish Barnard RN Discharge Planning/Care Management Advanced directive, confirm from FAMILY Start: 12/30/19 19:24 Freq: Q24H Status: Active Protocol: Document 12/30/19 19:24 AKP (Rec: 12/30/19 19:25 AK [id number]) Advance Directive, confirm on record Time 19:25 Person contacted Linette Copy received No CM Discharge Assessment Start: 12/31/19 10:29 Freq: Status: Active Protocol: Document 12/31/19 10:29 HS (Rec: 12/31/19 10:30 HS [id number]) Discharge Planning Assessment Assigned Web Art Director Irish Barnard RN DPOA/Assigned Designee Name Annelise Angel () Contact Information [phone] Advance Directives? Yes History Provided By Patient,Significant Other, Medical Record Has Patient been admitted in last 30 No days? Prior Living Arrangements House Household Members spouse Type of transporation used prior to Relies on Others admit Independent with ADL's Yes Is patient alert and oriented? Yes Caregiver for Another No DME Already Rented / Owned FWW / Walker,Cane Barriers to Discharge No Discharge Plan Home Referrals Initiated None needed Whiteboard Updated in Patient Room with Yes name and ext. # of Web Art Director Review Status In Process Next Review Type Continued Stay Review
--- NOTE | 2019-12-31 11:14 | PT.IIE ---
Surgical History (Last Updated 12/31/19 @ 00:04 by CHATO Ellis) H/O aortic valve replacement (Acute) History of coronary artery bypass graft x 1 (Acute) History of hip surgery (Acute) Medical History (Last Updated 12/31/19 @ 00:04 by CHATO Ellis) Coronary artery disease (Acute) CVA (cerebral vascular accident) (Acute) Fractured hip (Acute) Frequent falls (Acute) Heart valve disease (Acute) Hyperlipidemia (Acute) Hypertension (Acute) Vertigo (Acute) Physical Therapy Inpatient Evaluation/Re-Eval M1 PT/OT-IP Prior Functional Status Start: 12/31/19 12:36 Freq: NEEDED Status: Active Protocol: Document 12/31/19 11:14 AB (Rec: 12/31/19 13:04 AB [id number]) Medical Review Prior Functional Status Medical History Reviewed Yes Communication able to make needs known Mobility and Gait pt stated that he is modified independent with bed mobility using R bed cane, occasionally assist from spouse for sit to stand transfers, able to ambulate using a quad cane but has not been walking much but uses a power w/c indoors and a power scooter outdoors. stated that at one point he was able to ambulate ~ 50 ft but has been getting weaker and unable to walk much lately. Social History Household Members spouse Living Arrangements House Number of Floors (Floors) Two Floors Number of Stairs To Enter/Railing? ramp to enter pt stays on main level of the house Home Environment High Toilet,Walk in Shower, Ramp Home Equipment Quad Cane,Shower Seat without Backrest,Hand Held Shower,Grab Bars Near Toilet,Grab Bars In Shower Additional Social History Comment spouse stated that they just bought an upright walker M2 PT-IP Current Condition Start: 12/31/19 12:36 Freq: NEEDED Status: Active Protocol: Document 12/31/19 11:14 AB (Rec: 12/31/19 13:04 AB [id number]) Physical Therapy Current Condition Current Condition Evaluation Date 12/31/19 Treatment Diagnosis TIA; difficulty in walking Onset Date 12/30/2019 Precautions Other Precautions falls M3 PT-IP Subjective Start: 12/31/19 12:36 Freq: NEEDED Status: Active Protocol: Document 12/31/19 11:14 AB (Rec: 12/31/19 13:04 AB [id number]) Subjective Physical Therapy Visit Type Type Initial Evaluation Visit Start Time 11:14 Visit Stop Time 11:55 Total Visit Minutes 41 Number of PAY AGENT Visits 0 Physical Therapy Visit Comments Patient Comments pt agreeable to do PT M4 PT-IP Mobility and Gait Start: 12/31/19 12:36 Freq: NEEDED Status: Active Protocol: Document 12/31/19 11:14 AB (Rec: 12/31/19 13:04 AB [id number]) PT-Bed Mobility Assessment Supine to Sit Supine to Sit Contact Guard Assistance, Bedrails PT-Transfer Assessment Sit to and From Stand Sit to and from Stand Maximum Assistance,2 Person Assistance,Use of Upper Extremities Equipment Transfer Assistive Device Gait Belt,Large Based Quad Cane Orthotic/Prosthetic Devices or Brace: No Transfers Transfer Destination Chair Transfer Technique ambulated using LBQC Transfer Ability Level of Assist Moderate Assistance,Maximum Assistance,1 Person Assistance ,Use of Upper Extremities Comments Mobility Comments pt stated that he has a R side bedcane to assist him with bed mobility. completed supine to sit using bed cane CGA and cues. demonstrate difficulty in completing the task and requires increase time to complete. pt completed sit to stand from EOB max A and cues. pt requires max A to stabilize RLE. pt ambulated towards the chair using LBQC mod to max A and cues. requires assist with weight shifting to assist with RLE propulsion/elevation . pt required mod to max A for controlled descent on the chair. completed sit to stand from the chair max A x 2 and max cues. positioned pt on chair. call light and table placed within reach. informed pt and spouse regarding level of assistance and for safe home d/c plan. spouse stated that her brother lives with them and can assist pt as well. Gait Assessment Gait Gait Assistance Required: Moderate Assistance,Maximum Assistance,1 Person Assist Distance (Feet) 12 Able to Maintain Weight Bearing Status Yes During Gait Assistive Devices Assistive Device Gait Belt,Large Based Quad Cane Orthotic/Prosthetic Devices or Brace: No Gait Deviations General Gait Pattern Antalgic,Decreased Stride Length,Decreased Feet Clearance,Lateral Trunk Lean, Step-to Gait Factors Limiting Gait Function Factors Limiting Gait Function Abnormal Tonal Influences, Decreased Activity Tolerance, Decreased Sensation,Decreased Strength,Difficulty Following Directions,Incoordination, Limited Range of Motion,Poor Balance,Poor Safety Awareness Comments Gait Comments pt presents with increase extensor tone on LLE. pt ambulated using LBQC mod to max A and max cues. presents with increase forwards flexion during standing, decreas knee flexion during swing phase. UE elbow also in flexed positiion during standing. PT-Balance Assessment Sitting Balance and Reactions Static Sitting Balance Ability Good Dynamic Sitting Balance Ability Fair Standing Balance and Reactions Static Standing Balance Ability Poor Dynamic Standing Balance Ability Poor Device Used LBQC M5 PT-IP Objective Assessments Start: 12/31/19 12:36 Freq: NEEDED Status: Active Protocol: Document 12/31/19 11:14 AB (Rec: 12/31/19 13:04 AB [id number]) Orientation Orientation/Cognition Level of Alertness Alert Orientation Name,Place,Situation Gross Range of Motion Lower Extremity ROM Assessment Left Impaired Impairments increase LLE extensor tone affecting AROM Strength Lower Extremity Strength Assessment Left Impaired Sensation Assessment Sensation Gross Sensation Left UE Impaired,Left LE Impaired Light Touch Impaired Proprioception (Position) Impaired Muscle Tone Muscle Tone WNL Yes Muscle Tone Location Left Lower Extremity Type of Tone Rigidity Severity of Tone Moderate M6 PT-IP Treatment Start: 12/31/19 12:36 Freq: NEEDED Status: Active Protocol: Document 12/31/19 11:14 AB (Rec: 12/31/19 13:04 AB [id number]) Physical Therapy Treatment Exercises Exercises Heel Slides Education Education Provided Precautions,Safety Other Treatments Other Treatment Performed completed L hip/knee flexion prior to mobility M7 PT-IP Assessment and Plan Start: 12/31/19 12:36 Freq: NEEDED Status: Active Protocol: Document 12/31/19 11:14 AB (Rec: 12/31/19 13:04 AB [id number]) PT Summary Assessment and Plan Potential Rehabilitation Potential Good Status of Condition at Evaluation Evolving Summary Impairments Pain,ROM,Strength,Balance, Coordination,Sensation,Tone, Cognition,Bed Mobility, Transfers,Gait,Activity Tolerance Assessment Summary pt requiring 2 person assist with transfers at this time and spouse stated that there can be 2 person at home to assist pt. pt also stated that he can stand better with tennis shoes on. will assess mobility next tx session with tennis shoes on. d/c plan depending on assistance that spouse will be able to provide and will complete caregiver training when appropriate. Pt will benefit from homehealth PT if safe to go home. will continue to assess progress. Goals Bed Mobility Goal Standby Assistance Transfer Goal Standby Assistance,Cane Gait Goal Standby Assistance,Cane Gait Distance 40 Days to Meet Goals 5 Frequency of Treatment Frequency Of Treatment Twice a Day Treatment Plan Physical Therapy Treatment Plan Bed Mobility Training,Transfer Training,Gait Training, Therapeutic Exercise,Balance Retraining,Discharge Planning, Neuromuscular Re-ed, Coordination Retraining,Manual Therapy Recommendations To Nursing Amount of Assist Needed 2 Person Assist Discharge Recommendations PT Discharge Recommendations Home with 24/7 Assist,Home Health Transportation Needs at Discharge Private Vehicle
--- NOTE | 2019-12-31 11:22 | PC.NURSE ---
Assess- Patient is alert and oriented 3. 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 NIH stroke scale a 2 this morning. Patient able to lift both of his arms up without drift, as well as both legs. His smile is symmetrical and speech clear. Ambulating with one/two people with a walker. He does not seem to have any memory deficits that this time. Tolerating a general diet, o issues with choking. He is working with physical therapy at this time and occupational therapy.
--- NOTE | 2019-12-31 11:28 | OT.IP.EVAL ---
Past Medical History (Last Updated 12/31/19 @ 00:04 by CHATO Ellis) Coronary artery disease (Acute) CVA (cerebral vascular accident) (Acute) Fractured hip (Acute) Frequent falls (Acute) Heart valve disease (Acute) Hyperlipidemia (Acute) Hypertension (Acute) Vertigo (Acute) Surgical History (Last Updated 12/31/19 @ 00:04 by CHATO Ellis) H/O aortic valve replacement (Acute) History of coronary artery bypass graft x 1 (Acute) History of hip surgery (Acute) Occupational Therapy Inpatient Evaluation/Re-Eval M1 PT/OT-IP Prior Functional Status Start: 12/31/19 12:36 Freq: NEEDED Status: Active Protocol: Document 12/31/19 11:14 AB (Rec: 12/31/19 13:04 AB [id number]) Medical Review Prior Functional Status Medical History Reviewed Yes Communication able to make needs known Mobility and Gait pt stated that he is modified independent with bed mobility using R bed cane, occasionally assist from spouse for sit to stand transfers, able to ambulate using a quad cane but has not been walking much but uses a power w/c indoors and a power scooter outdoors. stated that at one point he was able to ambulate ~ 50 ft but has been getting weaker and unable to walk much lately. Social History Household Members spouse Living Arrangements House Number of Floors (Floors) Two Floors Number of Stairs To Enter/Railing? ramp to enter pt stays on main level of the house Home Environment High Toilet,Walk in Shower, Ramp Home Equipment Quad Cane,Shower Seat without Backrest,Hand Held Shower,Grab Bars Near Toilet,Grab Bars In Shower Additional Social History Comment spouse stated that they just bought an upright walker M1 PT/OT-IP Prior Functional Status Start: 12/31/19 14:02 Freq: NEEDED Status: Active Protocol: Document 12/31/19 11:14 [facility] (Rec: 12/31/19 14:26 [facility] [id number]) Medical Review Prior Functional Status Medical History Reviewed Yes Communication able to make needs known Mobility and Gait pt stated that he is modified independent with bed mobility using R bed cane, occasionally assist from spouse for sit to stand transfers, able to ambulate using a quad cane but has not been walking much but uses a power w/c indoors and a power scooter outdoors. stated that at one point he was able to ambulate ~ 50 ft but has been getting weaker and unable to walk much lately. Activities of Daily Living and IADL's Pt states prior able to do dressing on his own with use of chief quality officer and sock aid, however takes him a long time and ends up just assisting him. Pt states independent to toilet himself as well. Pt's assists with showering for pt. Social History Household Members spouse Living Arrangements House Number of Floors (Floors) Two Floors Number of Stairs To Enter/Railing? ramp to enter pt stays on main level of the house Home Environment High Toilet,Walk in Shower, Ramp Home Equipment Quad Cane,Power Wheelchair/ Scooter,Shower Seat without Backrest,Hand Held Shower,Grab Bars Near Toilet,Grab Bars In Shower Additional Social History Comment spouse stated that they just bought an upright walker M2 OT-IP Current Condition Start: 12/31/19 14:02 Freq: Status: Active Protocol: Document 12/31/19 11:14 [facility] (Rec: 12/31/19 14:26 [facility] [id number]) Occupational Therapy Current Condition Current Condition Evaluation Date 12/31/19 Treatment Diagnosis TIA, decreased mobility Diagnosis Onset Date 12/31/19 Weight Bearing Status Weight Bearing Status Weight Bear as Tolerated M3 OT- IP Subjective and Pain Start: 12/31/19 14:02 Freq: Status: Active Protocol: Document 12/31/19 11:14 [facility] (Rec: 12/31/19 14:26 [facility] [id number]) OT- Subjective Occupational Therapy Visit Type Type Initial Evaluation Visit Start Time 11:14 Visit Stop Time 11:58 Total Visit Minutes 44 Occupational Therapy Visit Comments Patient Comments Pt willing to get up and pt's in the room. Patient/Caregiver Goals To go home. OT Pain Assessment Pain When Pain Assessed At Rest Pain Present Pain Present Denied Pain M4 OT- IP ADL's Start: 12/31/19 14:02 Freq: Status: Active Protocol: Document 12/31/19 11:14 [facility] (Rec: 12/31/19 14:26 [facility] [id number]) OT DSS-[id number]-Gfkdhnf Comments OT Self-Feeding Comments Not at meal time. OT ADL-Grooming Comments OT Grooming Comments Pt states to do later. OT ADL-Oral Care Comments Oral Care Comments Not performed. OT ADL-Dressing General Eval Lower Body Dressing Ability Maximum Assistance Areas Needing Assistance Socks OT ADL-Toileting Comments OT Toileting Comments Pt not having to go at this time. M5 OT- IP IADL's Start: 12/31/19 14:02 Freq: Status: Active Protocol: Document 12/31/19 11:14 [facility] (Rec: 12/31/19 14:26 [facility] [id number]) OT-Instrumental Activities of Daily Living Meal Preparation Meal Preparation Caregiver Provides Assist Puffer Tender Puffer Tender Caregiver Provides Assist Driving Driving Caregiver Provides Assist M6 OT- IP Functional Cognition Start: 12/31/19 14:02 Freq: Status: Active Protocol: Document 12/31/19 11:14 [facility] (Rec: 12/31/19 14:26 [facility] [id number]) Cognitive Factors Limiting Selfcare Function Cognitive Ability Level of Alertness Alert Patient Orientation Name,Place,Situation Attention Span Ability Capable of Focused Attention, Capable of Sustained Attention Ability to Follow Commands Able to Follow One Step Commands Safety Awareness Underestimates Need for Assistance Cognitive Comments Cognitive Assessment Comments Pt able to follow one step commands. Pt needing vc for safety to stand up taller when trying to walk with quad cane . Pt feels that he will be okay at home due to having much equipment for his needs and also in addition to his , another person at home to help at all times. OT- Vision and Hearing OT- Hearing Assessment OT- Hearing Assessment WFL OT- Vision Assessment Visual Acuity WFL M7 OT- IP Mobility and Balance Start: 12/31/19 14:02 Freq: Status: Active Protocol: Document 12/31/19 11:14 [facility] (Rec: 12/31/19 14:26 [facility] [id number]) OT- Bed Mobility Assessment Supine to Sit Supine to Sit Assist Contact Guard Assistance,1 Person Assistance OT-Transfer Assessment Sit to and From Stand Sit to and from Stand Maximum Assistance,2 Person Assistance Transfers Transfer Ability Moderate Assistance,Maximum Assistance,1 Person Assistance Technique Transfer Destination Bed,Chair Transfer Technique Stand Step Pivot Devices Transfer Assistive Devices Large Based Quad Cane Comments Mobility Comments CGA with use of bed rail as pt has a bed cane at home. MAX A X 2 to stand, pt states uses shoes at home which makes it easier to stand. Pt's left knee needed to blocked in order to stand. Pt states uses lift chair at home to help stand . In addition another family member present at home to assist , as currently pt needing two person assist to help to stand . MODA /MAX A x1 taking a few steps with PT with quad cane. At home pt have a motorized wc to get around. OT- Balance Assessment Sitting Balance and Reactions Static Sitting Balance Ability Good Dynamic Sitting Balance Ability Fair Standing Balance and Reactions Static Standing Balance Ability Poor Dynamic Standing Balance Ability Poor M8 OT- IP Objective Assessments Start: 12/31/19 14:02 Freq: Status: Active Protocol: Document 12/31/19 11:14 [facility] (Rec: 12/31/19 14:26 [facility] [id number]) OT Gross Range of Motion Upper Extremity Range of Motion Assessment Left Impaired OT Strength Comments Strength Comments RUE 4/5, LUE 3-/5 OT- Coordination Assessment Upper Extremity Finger to Nose Test Left UE Impaired OT-Muscle Tone Assessment Muscle Tone WNL No Muscle Tone Location Left Lower Extremity Type of Tone Hypertonicity,Flexor Severity of Tone Moderate Comments Muscle Tone Comments Pt notd increased flexor tone during exertion. OT Sensation Assessment Comments Summary Comments Pt states sensation feels different on the left side, however no change from before. M9 OT- IP Assessment and Plan Start: 12/31/19 14:02 Freq: Status: Active Protocol: Document 12/31/19 11:14 [facility] (Rec: 12/31/19 14:26 [facility] [id number]) OT Summary Assessment and Plan Potential Rehabilitation Potential Good Analytic Complexity at Evaluation Low Summary OT Impairments Range of Motion,Strength, Balance,Coordination, Functional Cognition, Functional Mobility,Self- Feeding,Grooming,Dressing, Toileting,Bathing,Toilet Transfers,Shower Transfers, Activity Tolerance Progress Towards Goals Slow Progress due to Medical Issues,Slow Progress due to Activity Tolerance Assessment Summary Pt low complexity and here due to possible TIA and now having decreased mobility needs and requiring two person assist to help to stand. Pt far from baseline of being mostly KATHERIN with dressing, toileting, and transfer needs. Pt would from skilled rehab versus home with 2 person assist,13/05 assist and home health pending caregiver training with . Goals Self-Feeding Goal Standby Assistance Grooming Goal Standby Assistance Dressing Goal Minimal Assistance Toileting Goal Minimal Assistance Toilet Transfer Goal Standby Assistance Shower Transfer Goal Minimal Assistance Patient/Caregiver Education Goal Caregiver Independent Assisting Patient Days to Meet Goals 10 Frequency of Treatment Frequency Of Treatment Once a Day Treatment Plan OT Treatment Plan ADL Training,Functional Mobility,Patient/Family Education,Discharge Planning Other Treatment Recommendations and Next Caregiver training with . Treatment Focus Discharge Recommendations OT Discharge Recommendations Home with 24/7 Assist,Home Health,SNF Rehab Other Discharge Recommendations Pending caregiver training most likely home with 24/7 2 person assist and home health versus skilled rehab. Transportation Needs at Discharge Wheelchair/Cabulance
--- NOTE | 2019-12-31 12:19 | DI.MRI.S_ITS ---
PROCEDURE: MR STROKE Pre- and post-contrast brain MRI, non-contrast brain MR angiogram, pre- and postcontrast neck MR angiogram INDICATIONS: R facial droop and R hand numbness, now resolved TECHNIQUE: Brain: Noncontrast axial T1 spin echo, axial T2 fast spin echo, sagittal and axial FLAIR, coronal T2 fast spin echo, axial gradient echo, axial diffusion and ADC through the brain. After the administration of contrast, axial 3D VIBE of the cranial vasculature and brain. Brain MRA: Non-contrast 3-D time of flight MR angiogram, with multiple jmggiie-hjqrsajpp-bisyyscahj (MIP) reformats performed. Neck MRA: Axial and sagittal TruFISP through the neck. Coronal dynamic MR angiogram during administration of contrast in the arterial and venous phases, with 3-dimenstional tewqvca-bhlwrvkuc-rptxstxdvd (MIP) reformats constructed from subtraction images. COMPARISON: [facility], CT, HEAD AND NECK ANGIO, 09/12/2016, 11:11. [facility], MR, STROKE PROTOCOL, 09/11/2016, 9:24. [facility], CT, HEAD WITHOUT CONTRAST, 04/27/2017, 9:18. FINDINGS: Image quality: Excellent. BRAIN: CSF spaces: Ventricles are normal in size and shape. Basal cisterns are patent. No extra-axial fluid collections. Brain: No intracranial bleeds or mass effects. Jean-white matter interface is normal. Small area of restricted diffusion noted in the right frontal lobe compatible with acute infarct. Small rounded focus of restricted diffusion in the left parietal lobe. Small chronic lacunar infarcts with surrounding luteal cyst noted in the subcortical white matter and periventricular white matter. Small chronic right occipital infarct with surrounding gliosis. Small chronic bilateral cerebellar hemisphere lacunar infarcts. Brainstem appears normal. Normal intravascular flow voids are present. No abnormal intracranial enhancement. Skull and face: Calvarial marrow signal is normal. Orbits appear normal. Sinuses: Sinuses and mastoids are clear. BRAIN MR ANGIOGRAM: Anterior circulation: Intracranial internal carotid arteries are normal in size and enhancement. The flow within the paired anterior cerebral arteries is normal and symmetric. The flow within the middle cerebral arteries is normal and symmetric. The anterior communicating artery is seen. No stenoses, occlusions, or aneurysms. Posterior circulation: The visualized portions of the vertebral arteries demonstrate normal caliber, and join to form a normal appearing basilar artery. The flow within the posterior cerebral arteries is normal and symmetric. No stenoses, occlusions, or aneurysms. NECK MR ANGIOGRAM: Carotids: Great vessels demonstrate a conventional anatomy as they arise from the aortic arch. The origins of the common carotid arteries appear patent. The calibers and courses of both common carotid arteries are normal. Mild atherosclerotic irregularity noted in the origin of the right internal carotid artery which causes less than 50% stenosis. Atherosclerotic irregularity noted in the origin of the left internal carotid artery which causes moderate, approximately 50-60% stenosis. Posterior circulation: Mild atherosclerotic irregularity causing mild stenosis noted in the origins of the vertebral arteries bilaterally. More superior portions of both vertebral arteries demonstrate normal course and caliber, and join to form a normal appearing basilar artery. Miscellaneous: Subclavian arteries appear patent. There is a 2.7 x 2.5 x 4.5 cm mass with heterogeneous signal involving the superficial and deep lobes of the right parotid gland. IMPRESSION: BRAIN MRI: 1. Small acute infarcts involving the right frontal lobe and left parietal lobe. 2. Small chronic right occipital lobe infarct. 3. Numerous, small, chronic lacunar infarcts involving the subcortical white matter, the periventricular white matter in the cerebellar hemispheres. 4. Moderate, diffuse cerebral volume loss. 5. Mild to moderate periventricular and subcortical white matter chronic microvascular ischemic change. 6. No intracranial hemorrhage. 7. 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 Recommend ENT consultation. BRAIN MR ANGIOGRAM: Negative examination. NECK MR ANGIOGRAM: 1. Less than 50% stenosis of the origin of the right internal carotid artery. 2. Moderate, 50-60% stenosis of the origin of left internal carotid artery. 3. Mild atherosclerotic stenosis of the origins of the vertebral arteries. Dictated by: Marcia Wright MD, PhD on 12/31/2019 at 14:57 Approved by: Marcia Wright MD, PhD on 12/31/2019 at 15:12
--- NOTE | 2019-12-31 13:48 | ST.IPSLE ---
Visit Care Team Role Provider Type Servando Walker MD Primary Care Provider Physician Specialty: Internal Medicine Address: [address] [place] [address], [id number] Email: [email or web address] Shayna Panda MD Emergency Provider Physician Referring Provider Specialty: Emergency Medicine Address: [address] [place] [address] Email: Drea Parry MD Admit Provider Physician Attending Provider Specialty: Internal Medicine Address: [address] [place] [address] Email: [email or web address] Past Medical History (Last Updated 12/31/19 @ 00:04 by CHATO Ellis) Coronary artery disease (Acute Medical) CVA (cerebral vascular accident) (Acute Medical) 2016 Fractured hip (Acute Medical) Frequent falls (Acute Medical) Heart valve disease (Acute Medical) Hyperlipidemia (Acute Medical) Hypertension (Acute Medical) Vertigo (Acute Medical) Speech-Language Pathology Speech/Language Eval 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 Language Evaluation Assessment Type Comprehensive Speech-Language Evaluation Past Medical History Patient History Per Umer REIS's history and physical report, Mr. Bautista Angel is a 79-year -old male with a past medical history significant for prior CVA with left-sided weakness (2016), cardiovascular disease status post CABG x1, heart valve disease status post aortic valve replacement with porcine valve, hypertension, hyperlipidemia, vertigo and frequent falls presents to the ER after experiencing right- sided facial numbness and right hand numbness with impaired movement and dexterity and lightheadedness for 45 minutes. He denies headache or visual changes, nausea diaphoresis. The patient has a history of CV with residual left-sided weakness mild dysarthria and dysphagia. While in the ER the patient states his symptoms are diminishing but still present. Hearing Hearing Level Normal Vision Vision Status Not Impaired [place] Language Language(s) Spoken in the Home [place] Occupational Status Occupation Status Retired Previous Therapy Previous Speech-Language Therapy Yes History of Therapy Patient reported that he received inpatient speech therapy 1-2 times during hospitalization for CVA in 2016. Patient stated that his mild dysarthria and dysphagia resolved shortly after hospitalization/discharge. Oral Motor Examination Oral Motor Exam Completed Yes Results Patient's oral/facial structures and functions were WFL for adequate speech production and safe swallowing . Patient reported that R sided facial numbness has improved and has experienced no difficulty eating/drinking/ speaking with residual L sided weakness from previous CVA ( 2016). Patient's swallowing was observed/screened during breakfast. Patient consumed spanish toast, sausage, coffee, and milk with no overt s/sx of aspiration. Nursing reported no difficulty with swallowing as well. It is recommended that patient continue with regular consistency diet (heart healthy/cardiac) and thin liquids with use of small bites/sips to improve protection of airway. Patient and patient's verbalized understanding to swallowing recommendations (e.g., small bites/sips). Subjective Subjective Patient was alert and oriented x 4. Patient's was present during evaluation. Patient reported 0 pain and/or discomfort. - Informal Assessment Receptive Language Normal Yes Expressive Language Normal Yes Articulation Normal Yes Cognition Normal Yes - Receptive Language Yes/No Questions Skill Level WNL Comments simple and complex Following Directions - Verbal Skill Level WNL Comments 1-3 step directions Auditory Comprehension Skill Level WNL Receptive Language Comments Receptive Language Comments Patient and patient's reported no difficulty in receptive language before and/ or after current hospitalization. - Expressive Language Automatic Speech Skill Level WNL Comments counting 1-20, BESSY, SALOMÓN Sentence Closure Skill Level WNL Comments phrase/sentence completion Object Naming Skill Level WNL Stating Functions Skill Level WNL Oral Expression Skill Level WNL Expressive Language Comments Expressive Language Comments Patient and patient's reported no difficulty in expressive language before and /or after current hospitalization. No dysarthria observed. - Findings Language Findings Patient presented WNL on expressive/receptive language portions of the comprehensive speech-language evaluation. Patient is able to clearly express wants, needs, and ideas. Recommendations Recommendations It is recommended that patient continue with regular consistency diet (heart healthy/cardiac) and thin liquids with use of small bites/sips to improve airway protection. Patient and patient's verbalized understanding to swallowing recommendations (e.g., small bites/sips). Skilled speech therapy is not recommended at this time. Re-assess if symptoms change since patient has a history of CVA(s).
--- NOTE | 2019-12-31 15:00 | PT.IPTN ---
Physical Therapy Treatment Note M2 PT-IP Current Condition Start: 12/31/19 12:36 Freq: NEEDED Status: Active Protocol: Document 12/31/19 11:14 AB (Rec: 12/31/19 13:04 AB [id number]) Physical Therapy Current Condition Current Condition Evaluation Date 12/31/19 Treatment Diagnosis TIA; difficulty in walking Onset Date 12/30/2019 Precautions Other Precautions falls M3 PT-IP Subjective Start: 12/31/19 12:36 Freq: NEEDED Status: Active Protocol: Document 12/31/19 14:40 SP (Rec: 12/31/19 16:10 SP [email or web address]) Subjective Physical Therapy Visit Type Type Treatment Note Visit Start Time 14:25 Visit Stop Time 15:00 Total Visit Minutes 35 Number of EPIC ANESTHESIA ANALYST Visits 1 Physical Therapy Visit Comments Patient Comments pt agreeable to PT, helping patient on way to bathroom when arrived. M4 PT-IP Mobility and Gait Start: 12/31/19 12:36 Freq: NEEDED Status: Active Protocol: Document 12/31/19 14:40 SP (Rec: 12/31/19 16:10 SP [email or web address]) PT-Transfer Assessment Sit to and From Stand Sit to and from Stand Maximum Assistance,1 Person Assistance,Use of Upper Extremities Equipment Transfer Assistive Device Gait Belt,Large Based Quad Cane Orthotic/Prosthetic Devices or Brace: No Transfers Transfer Technique ambulated using LBQC Transfer Ability Level of Assist Maximum Assistance,1 Person Assistance,Use of Upper Extremities Comments Mobility Comments was assisting patient through LUE during gait using LBQC and no gait belt donned observed upon arrival to room. Pt was leaning up against wall near bathroom for a standing rest break was told by and patient. EPIC ANESTHESIA ANALYST educated importance and safety of use of gait belt then donned for them, with verbalized understanding it's importance. Pt continued ambulation into bathroom with Min- CGA provided by . EPIC ANESTHESIA ANALYST corrected hand positioning of during support underhanded for safety. Pt and asked that I leave and give privacy and educated caregiver training needs to be observed by the therapist throughout all needs and give support of second person, myself if needed to assimulated reported home situation. Pt didn't look pleased but understood. Cued for complete pivot using LBQC and backing up to toilet with continuous contact provided by through gait belt with cuing. Pt stated could complete brief mgt himself, but unable to maintain balance so used LBQC for support while completed brief mgt . EPIC ANESTHESIA ANALYST provided commode to R to assimulate bathroom counter uses for self support to sit and stand with repeated cuing to to give him guidence to sit, Min A required and observed quick descent, wow that was faster than I thought was going to be stated patient. Pt was able to come to standing with use of wall vertical rail with RUE and CGA -Min A from then patient utilized LBQC for support in standing while completed hygiene and brief mgt, cued to allow contact support for safety with balance while completing hygiene mgt. Pt was stable, no deviations or LOB. EPIC ANESTHESIA ANALYST provided max A for socks/ shoes donning to assess gait out of bathroom with improvement noted in foot clearance, cued for upright posture and LBQC closer to body during gait to allow for improved LLE clearance, LLE extensor tone prevented knee flexion so had to utilize hip elevation and was difficult to perform in trunk flexed posture with cane out to far in front. Pt walked from bathroom to door and step pivot to w/c, cued for reaching back with RUE to slow safe descent into w/c for an MRI appt. Pt left room via w/c . EPIC ANESTHESIA ANALYST and discussed importance of being with patient at all times, use of gait belt at this time for safety and complimented her cuing for upright posture, use of gait belt and patient needing 24/7 support at this time. commented does work but could take tomorrow off but her brother would be home with him. I recommended the importance of patient needing 24/7 support when out of chair , bed of 1-2 persons at this time. looked suprised and stated there is times previously that he is home by himself during the day and her brother is there to help him if needed but that she could take off work. PT is recommending further acute PT/ OT treatment session for safety caregiver training with and brother prior to DC home and requiring 24/7, home health PT. Gait Assessment Gait Gait Assistance Required: Minimum Assistance,1 Person Assist Distance (Feet) 15 Able to Maintain Weight Bearing Status Yes During Gait Assistive Devices Assistive Device Gait Belt,Large Based Quad Cane Orthotic/Prosthetic Devices or Brace: No Gait Deviations General Gait Pattern Antalgic,Decreased Stride Length,Decreased Feet Clearance,Lateral Trunk Lean, Step-to Gait Factors Limiting Gait Function Factors Limiting Gait Function Abnormal Tonal Influences, Decreased Activity Tolerance, Decreased Sensation,Decreased Strength,Difficulty Following Directions,Incoordination, Limited Range of Motion,Poor Balance,Poor Safety Awareness Comments Gait Comments See mobility comments. Min A for gait using LBQC 5 ft side of sink to toilet, toilet to w /c in room doorway Min A of 1 provided by , min cuing for LBQC closer to body to allow upright posture and LLe advancement with minimal improvement why don't we just get to the chair to get the MRI done, will do this later, demonstrates decreased safety awareness. PT-Balance Assessment Sitting Balance and Reactions Static Sitting Balance Ability Good Dynamic Sitting Balance Ability Good Standing Balance and Reactions Static Standing Balance Ability Fair Dynamic Standing Balance Ability Fair Device Used LBQC M5 PT-IP Objective Assessments Start: 12/31/19 12:36 Freq: NEEDED Status: Active Protocol: Document 12/31/19 11:14 AB (Rec: 12/31/19 13:04 AB [id number]) Orientation Orientation/Cognition Level of Alertness Alert Orientation Name,Place,Situation Gross Range of Motion Lower Extremity ROM Assessment Left Impaired Impairments increase LLE extensor tone affecting AROM Strength Lower Extremity Strength Assessment Left Impaired Sensation Assessment Sensation Gross Sensation Left UE Impaired,Left LE Impaired Light Touch Impaired Proprioception (Position) Impaired Muscle Tone Muscle Tone WNL Yes Muscle Tone Location Left Lower Extremity Type of Tone Rigidity Severity of Tone Moderate M6 PT-IP Treatment Start: 12/31/19 12:36 Freq: NEEDED Status: Active Protocol: Document 12/31/19 14:40 SP (Rec: 12/31/19 16:10 SP [email or web address]) Physical Therapy Treatment Education Education Provided Precautions,Safety M7 PT-IP Assessment and Plan Start: 12/31/19 12:36 Freq: NEEDED Status: Active Protocol: Document 12/31/19 14:40 SP (Rec: 12/31/19 16:10 SP [email or web address]) PT Summary Assessment and Plan Potential Rehabilitation Potential Good Status of Condition at Evaluation Evolving Summary Impairments Pain,ROM,Strength,Balance, Coordination,Sensation,Tone, Cognition,Bed Mobility, Transfers,Gait,Activity Tolerance Assessment Summary pt requiring 1 person assist Min durign gait and Max with sit to stand transfers at this time usign LBQC and vertical rail during toileting. Spouse and continuously stated that there can be 2 person at home to assist pt, a brother. pt did demonstrated improvement in standing with cuing for posture with donned shoes. Recommending continue caregiver training with and brother prior to d/c plan for safety. needed alot of safety cuing for use of gait belt, Min- Max A throughout treatment. Pt will benefit from homehealth PT if safe to go home. Will continue to assess progress. Goals Bed Mobility Goal Standby Assistance Transfer Goal Standby Assistance,Cane Gait Goal Standby Assistance,Cane Gait Distance 40 Days to Meet Goals 5 Frequency of Treatment Frequency Of Treatment Twice a Day Treatment Plan Physical Therapy Treatment Plan Bed Mobility Training,Transfer Training,Gait Training, Therapeutic Exercise,Balance Retraining,Discharge Planning, Neuromuscular Re-ed, Coordination Retraining,Manual Therapy Recommendations To Nursing Amount of Assist Needed 1 Person Assist Discharge Recommendations PT Discharge Recommendations Home with 13/05 Assist,Home Health Transportation Needs at Discharge Private Vehicle
--- NOTE | 2019-12-31 15:35 | CM.DPC ---
DCP Continued: EMR reviewed: PT came by to talk to CM/Rn about patient D/C plan to go home with family. PT stated that they think patient and patients family will need assistance from HH. CM/Rn met with patients and patient and determined that patient agreed that HH services are needed. Patients chose [facility] as preferred HH provider. CM/RN called [facility] and left a voice message. Dr. Lerner signed Face to face and CM/RN faxed face to face and clinicals to [facility] . Cm/Rn will checkin with [facility] in the AM and fax off D/C order and summary at that time. [facility] flyer given to family to check in. Irish Barnard RN
--- NOTE | 2019-12-31 17:27 | P.PN_ITS ---
Subjective Subjective Date Patient Seen: 12/31/19 Time Patient Seen: 17:27 Interval history: Mr. Bautista Angel is a 79-year-old male with a past medical history significant for prior CVA with left-sided weakness (2016), cardiovascular disease status post CABG x1, heart valve disease status post aortic valve replacement with porcine valve, hypertension, hyperlipidemia, vertigo and frequent falls presented to the ER after experiencing right-sided facial numbness and right hand numbness with impaired movement and dexterity and lightheadedness for 45 minutes. His symptoms did resolve and the patient is at baseline. His MRI was positive for multiple acute infarcts. Patient has shown no evidence AFib on telemetry as at this time. His echocardiogram was also unremarkable. Exam Vital Signs (past 8 hours): - 12/31/19 10:42 12/31/19 15:45 Temperature 97.0 F L 97.7 F Pulse Rate 94 H 73 Respiratory Rate 16 16 Blood Pressure 142/76 H 137/76 Pulse Oximetry 99 97 Oxygen Delivery Method Room Air Oxygen Flow Rate 0 Narrative Exam Narrative: GENERAL APPEARANCE: well developed, obese male with a BMI of 34.8 who is sitting up in bed in no acute distress. HEENT: Symmetrical facies, no ptosis, PERRLA, conjunctiva clear and sclera is anicteric, EOMs intact without nystagmus, no rhinorrhea, mucous membranes are moist and pink without lesions or exudate. NECK/THYROID: neck supple, no JVD, no carotid bruit, no thyromegaly, trachea midline. LYMPH NODES: no cervical or supraclavicular lymphadenopathy. SKIN: [place], warm and dry, no visible lesions, rashes, ulcerations or petechiae. HEART: regular rate and rhythm, S1-S2, no murmur, no rubs or gallops, brisk cap illary refill, no edema LUNGS: clear to auscultation bilaterally, no coarseness crackles or wheezing, no cough present CHEST: Symmetrical movement, no accessory muscle use, good tidal volume. ABDOMEN: Soft, no distention, no abdominal tenderness, no guarding or peritoneal signs, no organomegaly, no flank or suprapubic tenderness, active bowel tones. BACK: Normal curvature, nontender to palpation, no CVA tenderness on percussion EXTREMITIES: Weakness with decreased range of motion left arm at the shoulder and elbow, no contractures, weak left leg left. NEUROLOGIC: AAO x4, briskly responsive, no aphasia, improved dysarthria, cranial nerves II-XII grossly intact, no deficits to sensation bilaterally upper and lower extremities. PSYCH: Good judgment, good insight, linear thought process, cooperative, appropriate with stable behavior Objective Labs Result Diagrams: 12/31/19 05:50 12/31/19 05:50 Labs: Laboratory Results - last 24 hr 12/30/19 12/30/19 12/30/19 16:00 16:06 16:06 WBC RBC Hgb Hct MCV MCH MCHC RDW Plt Count Neut % (Auto) Lymph % (Auto) Wheeler % (Auto) Eos % (Auto) Baso % (Auto) Neut # (Auto) Lymph # (Auto) Wheeler # (Auto) Eos # (Auto) Baso # (Auto) Sodium Potassium Chloride Carbon Dioxide BUN Creatinine Estimated GFR BUN/Creatinine Ratio Glucose Calcium Magnesium 2.2 Triglycerides 137 Cholesterol 175 LDL Cholesterol, Calc 93 HDL Cholesterol 55 Urine Color Urine Appearance Urine pH Ur Specific [place] Urine Protein Urine Glucose (UA) Urine Ketones Urine Occult Blood Urine Nitrate Urine Bilirubin Urine Urobilinogen Ur Leukocyte Esterase Urine RBC Urine WBC Urine Bacteria Ur Culture Indicated? U Opiates 300ng/mL cut Negative Ur Oxycodone Screen Negative Urine Methadone Screen Negative Ur Barbiturates Screen Negative U Tricyclic Antidepress Negative Ur Phencyclidine Scrn Negative Ur Amphetamines Screen Negative U Methamphetamines Scrn Negative Ur MDMA Scrn (Ecstasy) Negative U Benzodiazepines Scrn Negative Urine Cocaine Screen Negative U Marijuana (THC) Screen Negative 12/31/19 12/31/19 12/31/19 04:20 05:50 05:50 WBC 5.3 RBC 4.05 L Hgb 12.8 L Hct 36.6 L MCV 90.3 MCH 31.6 MCHC 35.0 RDW 13.5 Plt Count 166 Neut % (Auto) 64.5 Lymph % (Auto) 20.6 L Wheeler % (Auto) 8.9 Eos % (Auto) 5.1 H Baso % (Auto) 0.9 Neut # (Auto) 3400 Lymph # (Auto) 1100 Wheeler # (Auto) 500 Eos # (Auto) 300 Baso # (Auto) 0 Sodium 140 Potassium 4.0 Chloride 109 H Carbon Dioxide 27 BUN 10 Creatinine 0.68 Estimated GFR > 60.0 BUN/Creatinine Ratio 14.7 Glucose 106 Calcium 9.5 Magnesium Triglycerides Cholesterol LDL Cholesterol, Calc HDL Cholesterol Urine Color Yellow Urine Appearance Clear Urine pH 5.5 Ur Specific [place] 1.010 Urine Protein Negative Urine Glucose (UA) Negative Urine Ketones Negative Urine Occult Blood Negative Urine Nitrate Negative Urine Bilirubin Negative Urine Urobilinogen 0.2 Ur Leukocyte Esterase Negative Urine RBC 0-1/hpf Urine WBC None seen Urine Bacteria Occasional (0-1) Ur Culture Indicated? Cult not indicated U Opiates 300ng/mL cut Ur Oxycodone Screen Urine Methadone Screen Ur Barbiturates Screen U Tricyclic Antidepress Ur Phencyclidine Scrn Ur Amphetamines Screen U Methamphetamines Scrn Ur MDMA Scrn (Ecstasy) U Benzodiazepines Scrn Urine Cocaine Screen U Marijuana (THC) Screen Assessment & Plan Assessment & Plan narrative: 1. Acute CVA of R frontal and L parietal lobe, present on admission, active. Patient presented to the ER following 45 minutes of right-sided facial numbness, right hand numbness and loss of dexterity with associated lightheadedness and symptoms have since resolved. Patient denies headache, visual changes, nausea o r diaphoresis. He reports symptoms have improved but persist. Patient has prior CVA with residual left-sided weakness, with gross movement left arm and associate justice, left leg weakness, ambulates with walker or quad cane. NIH score is 7 with pre- existing left-sided weakness and dysarthria. Patient reports that his had stopped his aspirin without his knowledge, does not know for how long. -Ordered aspirin 324 mg chewed now, continue aspirin 81 mg daily. -Physical Occupational and Speech therapy to consult evaluate and treat. -TTE showing normal EF, normal atrial size, no significant valvular abnor malities. -Will check TSH with morning labs. MRI: Small acute infarcts involving the right frontal lobe and left parietal lobe. Small chronic right occipital lobe infarct. Numerous, small, chronic lacunar infarcts involving the subcortical white matter, the periventricular white matter in the cerebellar hemispheres. Moderate, diffuse cerebral volume loss. Mild to moderate periventricular and subcortical white matter chronic microvascular ischemic change. No intracranial hemorrhage. Large right parotid mass which could represent benign etiology including pleomorphic adenoma and Wa rthin's tumor or malignant etiology including adenoid cystic carcinoma and mucoid epidermoid carcinoma.. Recommend ENT consultation. 2. Hyperlipidemia, chronic, present on admission, active. -Patients cholesterol today: Total cholesterol 175, triglycerides 137, LDL 93 and HDL 55. -continue rosuvastatin 20 mg daily 3. Benign prostatic hypertrophy with lower urinary tract symptoms, present on admission, active. -Patient complains of difficulty urinating with weak urinary stream, voiding stopping and revoiding, difficulty starting and stopping, dribbling, and nocturia 6-8 times nightly. He describes feeling the need to void and the sense of incomplete emptying. -UA negative for infection -will start tamsulosin 0.4 mg daily 4. Essential hypertension, present on admission, stable. -Patient has slightly elevated blood pressure on arrival to the ER at 146/71. Later on the floor the blood pressure is 122/59. -Will continue patient's home regimen of amlodipine 5 mg daily and losartan 50 mg daily. 5. Muscle spasticity, chronic, stable. -Will continue patient's home regimen of baclofen 10 mg daily. 6. R parotid mass -consider ENT evaluation inpatient or outpatient Dispo: Anticipate discharge tomorrow if there are no neurological changes overnight. Patient did require significant assistance, but family elects for home with home health. Quality VTE Deep Vein Thrombosis/Pulmonary Embolism Present on Admission: Yes
[2019-12-31] MEDS: SERTRALINE 50 MG TABLET PO (17:35)
[2019-12-31] MEDS: BACLOFEN 10 MG TABLET PO (17:35)
[2020-01-01 04:40] VITALS: BP 131/79; PULSE 70; RESP 19; TEMP 36.7; O2SAT 96
[2020-01-01 06:17] LABS: BUN Creatinine Ratio 22.4 (6-22); Blood Urea Nitrogen 15 mg/dL (9-20); Calcium 9.6 mg/dL (8.4-10.2); Carbon Dioxide 28 mmol/L (22-32); Chloride 106 mmol/L (98-107); Estimated Glomerular Filt Rate > 60.0 mL/min (>60); Glucose 109 mg/dL (80-110); HEMOLYSIS < 15 (0-50); Magnesium 1.9 mg/dL (1.6-2.3); Potassium 3.8 mmol/L (3.4-5.1); Sodium 138 mmol/L (137-145)
[2020-01-01 06:48] LABS: TSH w/ Reflex to FT4 2.68 uIU/mL (0.47-4.68)
[2020-01-01 08:33] VITALS: BP 143/79; PULSE 76; RESP 18; TEMP 36.4; O2SAT 97
[2020-01-01] MEDS: AMLODIPINE 5 MG TABLET PO (09:27)
[2020-01-01] MEDS: ENOXAPARIN 40 MG/0.4 ML SYRINGE SUBCUT (09:27)
[2020-01-01] MEDS: LOSARTAN 50 MG TABLET PO (09:27)
[2020-01-01] MEDS: TAMSULOSIN 0.4 MG CAPSULE PO (09:27)
[2020-01-01] MEDS: ASPIRIN EC 81 MG TABLET PO (09:27)
[2020-01-01] MEDS: ROSUVASTATIN 10 MG TABLET 20 MG PO (09:29)
--- NOTE | 2020-01-01 09:51 | PT.IPTN ---
Physical Therapy Treatment Note M2 PT-IP Current Condition Start: 12/31/19 12:36 Freq: NEEDED Status: Active Protocol: Document 12/31/19 11:14 AB (Rec: 12/31/19 13:04 AB [id number]) Physical Therapy Current Condition Current Condition Evaluation Date 12/31/19 Treatment Diagnosis TIA; difficulty in walking Onset Date 12/30/2019 Precautions Other Precautions falls M3 PT-IP Subjective Start: 12/31/19 12:36 Freq: NEEDED Status: Active Protocol: Document 01/01/20 09:51 AB (Rec: 01/01/20 11:49 AB [id number]) Subjective Physical Therapy Visit Type Type Treatment Note Visit Start Time 09:51 Visit Stop Time 10:16 Total Visit Minutes 25 Number of MATERIAL LISTER Visits 0 Physical Therapy Visit Comments Patient Comments pt agreeable to do PT M4 PT-IP Mobility and Gait Start: 12/31/19 12:36 Freq: NEEDED Status: Active Protocol: Document 01/01/20 09:51 AB (Rec: 01/01/20 11:49 AB [id number]) PT-Bed Mobility Assessment Supine to Sit Supine to Sit Moderate Assistance,Bedrails Sit to Supine Sit to Supine Moderate Assistance,Bedrails PT-Transfer Assessment Sit to and From Stand Sit to and from Stand Moderate Assistance,Maximum Assistance,1 Person Assistance ,Use of Upper Extremities Equipment Transfer Assistive Device Gait Belt,Large Based Quad Cane Orthotic/Prosthetic Devices or Brace: No Transfers Transfer Destination Chair Transfer Technique ambulated using quad cane Transfer Ability Level of Assist Moderate Assistance,1 Person Assistance,Use of Upper Extremities Comments Mobility Comments caregiver training conducted. educated spouse on how to use safety belt and how to assist pt. spouse was able to assist pt with bed mobility, transfers, ambulation using quad cane. cues provided to spouse initially on how to assist pt but spouse was able to assist pt safely and cue pt . Gait Assessment Gait Gait Assistance Required: Moderate Assistance,1 Person Assist Distance (Feet) 12 Able to Maintain Weight Bearing Status Yes During Gait Assistive Devices Assistive Device Gait Belt,Large Based Quad Cane Orthotic/Prosthetic Devices or Brace: No Gait Deviations General Gait Pattern Antalgic,Decreased Stride Length,Decreased Feet Clearance,Step-to Gait Factors Limiting Gait Function Factors Limiting Gait Function Decreased Activity Tolerance, Decreased Strength,Difficulty Following Directions,Limited Range of Motion,Poor Balance, Poor Safety Awareness M5 PT-IP Objective Assessments Start: 12/31/19 12:36 Freq: NEEDED Status: Active Protocol: Document 12/31/19 11:14 AB (Rec: 12/31/19 13:04 AB [id number]) Orientation Orientation/Cognition Level of Alertness Alert Orientation Name,Place,Situation Gross Range of Motion Lower Extremity ROM Assessment Left Impaired Impairments increase LLE extensor tone affecting AROM Strength Lower Extremity Strength Assessment Left Impaired Sensation Assessment Sensation Gross Sensation Left UE Impaired,Left LE Impaired Light Touch Impaired Proprioception (Position) Impaired Muscle Tone Muscle Tone WNL Yes Muscle Tone Location Left Lower Extremity Type of Tone Rigidity Severity of Tone Moderate M6 PT-IP Treatment Start: 12/31/19 12:36 Freq: NEEDED Status: Active Protocol: Document 01/01/20 09:51 AB (Rec: 01/01/20 11:49 AB [id number]) Physical Therapy Treatment Education Education Provided Safety M7 PT-IP Assessment and Plan Start: 12/31/19 12:36 Freq: NEEDED Status: Active Protocol: Document 01/01/20 09:51 AB (Rec: 01/01/20 11:49 AB [id number]) PT Summary Assessment and Plan Potential Rehabilitation Potential Good Summary Impairments ROM,Strength,Balance, Coordination,Sensation, Cognition,Bed Mobility, Transfers,Gait,Activity Tolerance Progress Towards Goals Slow Progress due to Medical Issues Assessment Summary caregiver training conducted and spouse was able to assist pt safely. recommending homehealth PT to improve pt's mobility independence. Goals Bed Mobility Goal Standby Assistance Transfer Goal Standby Assistance,Cane Gait Goal Standby Assistance,Cane Gait Distance 40 Days to Meet Goals 5 Frequency of Treatment Frequency Of Treatment Twice a Day Treatment Plan Physical Therapy Treatment Plan Bed Mobility Training,Transfer Training,Gait Training, Therapeutic Exercise,Balance Retraining,Discharge Planning, Neuromuscular Re-ed, Coordination Retraining,Manual Therapy Recommendations To Nursing Amount of Assist Needed 1 Person Assist Discharge Recommendations PT Discharge Recommendations Home with 13/05 Assist,Home Health Transportation Needs at Discharge Private Vehicle
--- NOTE | 2020-01-01 10:22 | PM.DS.1 ---
History of Present Illness History of Present Illness Date Patient Seen: 01/01/20 Time Patient Seen: 10:22 Chief complaint: sudden right sided weakness Narrative: As per CHATO Ellis: Mr. Bautista Angel is a 79-year-old male with a past medical history significant for prior CVA with left-sided weakness (2015), cardiovascular disease status post CABG x1, heart valve disease status post aortic valve replacement with porcine valve, hypertension, hyperlipidemia, vertigo and frequent falls presents to the ER after experiencing right-sided facial numbness and right hand numbness with impaired movement and dexterity and lightheadedness for 45 minutes. He denies headache or visual changes, nausea diaphoresis. The patient has a history of CV with residual left-sided weakness mild dysarthria and dysphagia. While in the ER the patient states his symptoms are diminishing but still present. The patient additionally reports that unbeknownst to him his had stopped giving him his aspirin for an unknown period of time. The patient denies recent illness nasal congestion sore throat or fevers. He states he has had chills for a long time. He denies complaints of chest pain or palpitations and has had no shortness of breath cough or wheezing. He denies abdominal pain, heartburn, nausea vomiting. He states he has had constipation in the past but has corrected that by drinking sufficient water. He does report difficulty urinating with difficulty starting and stopping a stream small voids and nocturia 6-8 times nightly. Patient has minimal motion of his left arm but is able to ambulate with a walker. Upon arrival the ER he is afebrile with temperature 97.5?, heart rate is 73, blood pressure 146/71, respirations of 18 saturating 98% on room air. Status CT of the head is obtained which finds no acute intracranial pathology, cerebral volume loss for age, periventricular and deep white matter chronic small vessel ischemic changes. Twelve lead EKG finds normal sinus rhythm with a first-degree AV block at [address] or T-wave changes. On laboratory analysis the patient has white count of 5.6, hemoglobin 13.9, hematocrit 39.4 and platelets of 190. On coagulation he has a PT of 12.4, INR 1.1 and a PTT of 29. His electrolytes are all within normal limits and has a BUN of 13 and creatinine 0.62. Nonfasting glucose is 103. Toxicology screening is negative. On 12/25/2019 the patient had a TSH of 5.76 and T4 of 1.22. No interventions were pursued in the ER the patient is admitted to the medicine service for TIA versus CVA. Discharge Providers Provider Date of admission: 12/30/19 17:47 Discharge Date: 01/01/20 Primary care physician: Servando Walker MD Consults: 12/30/19 19:43 Consult to Discharge Planning Routine Comment: Consult to Occupational Therapy Evaluate & Treat Comment: History CVA left weakness, TIA right-sided symptom Physician Instructions: Evaluate and treat 12/30/19 19:44 Consult to Physical Therapy Evaluate & Treat Comment: History CVA left weakness, TIA right-sided symptom Physician Instructions: Evaluate and Treat 12/31/19 00:51 Consult to Speech Therapy Evaluate & Treat Comment: Right-sided TIA versus CVA, old left-sided CVA Physician Instructions: Evaluate and treat Discharge provider: Umer Lerner DO Summary Hospital Course Discharge Diagnosis: please see hospital course by problem list below. Hospital Course: 1. Acute CVA of R frontal and L parietal lobe, present on admission, active. Patient presented to the ER following 45 minutes of right-sided facial numbness, right hand numbness and loss of dexterity with associated lightheadedness and symptoms have since resolved. His symptoms eventually improved. -Given 324 mg asa x1, continue 81 mg daily. -Appreciate Physical Occupational and Speech therapy evaluations. -TTE showing normal EF, normal atrial size, no significant valvular abnormalities. -TSH unremarkable. MRI: Small acute infarcts involving the right frontal lobe and left parietal lobe. Small chronic right occipital lobe infarct. Numerous, small, chronic lacunar infarcts involving the subcortical white matter, the periventricular white matter in the cerebellar hemispheres. Moderate, diffuse cerebral volume loss. Mild to moderate periventricular and subcortical white matter chronic microvascular ischemic change. No intracranial hemorrhage. 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 Recommend ENT consultation. -telemetry was unremarkable while here, however there is concern given appearance on MRI for possible atrial fibrillation. Echocardiogram was also unremarkable and did not show dilated atria as noted above. Set up for 2 week culture monitor at [facility], who will call him once insurance authorization is approved. 2. Hyperlipidemia, chronic, present on admission, active. -Patients cholesterol today: Total cholesterol 175, triglycerides 137, LDL 93 and HDL 55. -patient was changed to Lipitor 80 mg given acute CVA. 3. Benign prostatic hypertrophy with lower urinary tract symptoms, present on admission, active. -Patient complained of difficulty urinating with weak urinary stream, voiding stopping and revoiding, difficulty starting and stopping, dribbling, and nocturia 6-8 times nightly. He described feeling the need to void and the sense of incomplete emptying. -UA negative for infection -patient started on tamsulosin 0.4 mg daily 4. Essential hypertension, present on admission, stable. -Will continue patient's home regimen of amlodipine 5 mg daily and losartan 50 mg daily. 5. Muscle spasticity, chronic, stable. -Will continue patient's home regimen of baclofen 10 mg daily. 6. R parotid mass-noted on MRI as seen above -recommend outpatient ENT evaluation Dispo: Anticipate discharge tomorrow if there are no neurological changes overnight. Patient did require significant assistance, but family elects for home with home health. Exam Vital Signs (past 8 hours): - 01/01/20 04:40 01/01/20 08:33 Temperature 98.0 F 97.5 F L Pulse Rate 70 76 Respiratory Rate 19 18 Blood Pressure 131/79 143/79 H Pulse Oximetry 96 97 Oxygen Delivery Method Room Air Oxygen Flow Rate 0 Narrative Exam Narrative: GENERAL APPEARANCE: well developed, obese male with a BMI of 34.8 who is sitting up in bed in no acute distress. HEENT: Symmetrical facies, no ptosis, PERRLA, conjunctiva clear and sclera is anicteric, EOMs intact without nystagmus, no rhinorrhea, mucous membranes are moist and pink without lesions or exudate. NECK/THYROID: neck supple, no JVD, no carotid bruit, no thyromegaly, trachea midline. LYMPH NODES: no cervical or supraclavicular lymphadenopathy. SKIN: [place], warm and dry, no visible lesions, rashes, ulcerations or petechiae. HEART: regular rate and rhythm, S1-S2, no murmur, no rubs or gallops, brisk capillary refill, no edema LUNGS: clear to auscultation bilaterally, no coarseness crackles or wheezing, no cough present CHEST: Symmetrical movement, no accessory muscle use, good tidal volume. ABDOMEN: Soft, no distention, no abdominal tenderness, no guarding or peritoneal signs, no organomegaly, no flank or suprapubic tenderness, active bowel tones. BACK: Normal curvature, nontender to palpation, no CVA tenderness on percussion EXTREMITIES: Weakness with decreased range of motion left arm at the shoulder and elbow, no contractures, weak left leg left. NEUROLOGIC: AAO x4, briskly responsive, no aphasia, improved dysarthria, cranial nerves II-XII grossly intact, no deficits to sensation bilaterally upper and lower extremities. PSYCH: Good judgment, good insight, linear thought process, cooperative, appropriate with stable behavior Objective Labs Result Diagrams: 12/31/19 05:50 01/01/20 05:23 Labs: Laboratory Results - last 24 hr 01/01/20 01/01/20 05:23 05:23 Sodium 138 Potassium 3.8 Chloride 106 Carbon Dioxide 28 BUN 15 Creatinine 0.67 Estimated GFR > 60.0 BUN/Creatinine Ratio 22.4 H Glucose 109 Calcium 9.6 Magnesium 1.9 TSH 2.68 Discharge Plan Discharge Plan Patient Disposition: Home Health Service Transfer to: [facility] Discharge comment: You were admitted to the hospital for R sided numbness and a facial droop. Your symptoms improved but your MRI was positive for two new strokes on both sides. Your echocardiogram was unremarkable but given the apperance there is concern for possible atrial fibrillation which was not seen while here. You are being set up for a holter monitor at [facility], they will call you when approved. Your statin medication was changed due to your CVA. You were also started on a medication for symptoms of an enlarged prostate. You should follow up with your PMD in the next 2-4 weeks. Incidental you were also noted to have a parotid mass, this should be evaluated by an ENT as an outpatient. Discharge orders & Medications Prescriptions: New simvastatin 80 mg tablet 80 mg PO BEDTIME 30 Days Qty: 30 RF: 0 aspirin 81 mg Tablet,Delayed Release (Dr/Ec) 81 mg PO DAILY 30 Days Qty: 30 RF: 0 tamsulosin [Flomax] 0.4 mg Capsule 0.4 mg PO DAILY 30 Days Qty: 30 RF: 0 Continued acetaminophen 325 MG tablet 325 - 650 mg PO Q6HP PRNQty: 30 RF: 0 CoQ-10 1 cap PO DAILY Qty: 0 RF: 0 Probiotic 1 cap PO DAILY Qty: 0 RF: 0 losartan [Cozaar] 50 MG tablet 50 mg PO DAILY Qty: 0 RF: 0 baclofen 10 mg tablet 10 mg PO QPM RF: 0 sertraline 50 mg tablet 50 mg PO QPM RF: 0 amlodipine [Norvasc] 5 MG tablet 5 mg PO DAILY RF: 0 Multivitamin 50 Plus Tablet 1 tab PO DAILY RF: 0 cholecalciferol (vitamin D3) [Vitamin D3] 125 mcg (5,000 unit) Tablet 5,000 unit PO DAILY RF: 0 Discontinued rosuvastatin 10 mg tablet 10 mg PO DAILY RF: 0 Follow up/Referrals: Servando Walker MD [Primary Care Provider] - Diet/Activity/Treatments Diet: Diet as Tolerated and Low-cholesterol Activity: As tolerated Visit Report/Discharge Packet Instructions: DI for Transient Ischemic Attack, Simvastatin, Tamsulosin Visit Report Forms: Patient Portal/API, Stroke Signs & Symptoms Discharge Data Primary Care Provider: Servando Walker V Attending Provider: Drea Parry Admit Date/Time: 12/30/19 17:47 Quality VTE Deep Vein Thrombosis/Pulmonary Embolism Present on Admission: Yes
--- NOTE | 2020-01-01 12:04 | OT.IP.TRT ---
Occupational Therapy Treatment Note M2 OT-IP Current Condition Start: 12/31/19 14:02 Freq: Status: Active Protocol: Document 12/31/19 11:14 [facility] (Rec: 12/31/19 14:26 [facility] [id number]) Occupational Therapy Current Condition Current Condition Evaluation Date 12/31/19 Treatment Diagnosis TIA, decreased mobility Diagnosis Onset Date 12/31/19 Weight Bearing Status Weight Bearing Status Weight Bear as Tolerated M3 OT- IP Subjective and Pain Start: 12/31/19 14:02 Freq: Status: Active Protocol: Document 01/01/20 09:51 [facility] (Rec: 01/01/20 12:32 [facility] [id number]) OT- Subjective Occupational Therapy Visit Type Type Treatment Note Visit Start Time 09:51 Visit Stop Time 12:04 Total Visit Minutes 44 Notes Pt seen for split treatment for caregiver training with pt 's . PT in for the 1st session. [id number] and [id number]. Occupational Therapy Visit Comments Patient Comments Pt insistent on going home. Patient/Caregiver Goals To go home isaac. OT Pain Assessment Pain When Pain Assessed At Rest Pain Present Pain Present Denied Pain M4 OT- IP ADL's Start: 12/31/19 14:02 Freq: Status: Active Protocol: Document 01/01/20 09:51 [facility] (Rec: 01/01/20 12:32 [facility] [id number]) OT [id number]-[id number]-Qudsoyp Comments OT Self-Feeding Comments Not at meal time. OT ADL-Grooming Comments OT Grooming Comments Pt's assisted with set-up and pt able to do. OT ADL-Dressing General Eval Upper Body Dressing Ability Moderate Assistance Lower Body Dressing Ability Maximum Assistance Areas Needing Assistance Pull-Over Shirt,Pants/Shorts, Socks,Shoes Comments OT Dressing Comments Pt's able to assist pt to get shirt on and states usually assists with LB dressing from the bed. Therefore, pt transferred to the bed and able to don clothing over his feet, MAX A to help stand after 2 attempts and able to assist pt to pull up his clothing. Educated pt to just focus on his balance instead of trying to assist his for his clothing. Pt when trying to assist with dressing while standing in very unbalanced and pt's having difficulty to assist him versus when pt able to focus on standing and pt's able to assist pt easier. Suggested when having home health to ask about if their house may be appropriate to have a transfer pole. OT ADL-Toileting Comments OT Toileting Comments Change of brief. OT ADL-Bathing Comments OT Bathing Comments Pt and insists will do it at home. M5 OT- IP IADL's Start: 12/31/19 14:02 Freq: Status: Active Protocol: Document 12/31/19 11:14 [facility] (Rec: 12/31/19 14:26 [facility] [id number]) OT-Instrumental Activities of Daily Living Meal Preparation Meal Preparation Caregiver Provides Assist Management Development Specialist Management Development Specialist Caregiver Provides Assist Driving Driving Caregiver Provides Assist M6 OT- IP Functional Cognition Start: 12/31/19 14:02 Freq: Status: Active Protocol: Document 01/01/20 09:51 [facility] (Rec: 01/01/20 12:32 [facility] [id number]) Cognitive Factors Limiting Selfcare Function Cognitive Ability Level of Alertness Alert Patient Orientation Name,Place,Situation Attention Span Ability Capable of Focused Attention, Capable of Sustained Attention Ability to Follow Commands Able to Follow One Step Commands Safety Awareness Underestimates Need for Assistance Cognitive Comments Cognitive Assessment Comments Pt resistant to having use the gait belt and insistent on doing things his own way. M7 OT- IP Mobility and Balance Start: 12/31/19 14:02 Freq: Status: Active Protocol: Document 01/01/20 09:51 [facility] (Rec: 01/01/20 12:32 [facility] [id number]) OT-Transfer Assessment Comments Mobility Comments Pt's educated how to reinier /doff gait belt as she tends to want to hold him by his left arm for assist for transfers. Educated to both of them that it is safer to use a gait belt for more control in general. In addition, in case of a fall then just holding him by his left arm would have a greater chance of injury to the left arm. Pt and for first session able to show and good safety for use of gait belt safely and for assist for bed mobility and transfer needs. However on the second session both not wanting to use the safety precautions of the gait belt and techniques shown earlier. Strongly recommended for them to use a gait belt at home, agreed to take it home. OT- Balance Assessment Sitting Balance and Reactions Static Sitting Balance Ability Good Dynamic Sitting Balance Ability Fair Standing Balance and Reactions Static Standing Balance Ability Poor Dynamic Standing Balance Ability Poor M8 OT- IP Objective Assessments Start: 12/31/19 14:02 Freq: Status: Active Protocol: Document 12/31/19 11:14 [facility] (Rec: 12/31/19 14:26 [facility] [id number]) OT Gross Range of Motion Upper Extremity Range of Motion Assessment Left Impaired OT Strength Comments Strength Comments RUE 4/5, LUE 3-/5 OT- Coordination Assessment Upper Extremity Finger to Nose Test Left UE Impaired OT-Muscle Tone Assessment Muscle Tone WNL No Muscle Tone Location Left Lower Extremity Type of Tone Hypertonicity,Flexor Severity of Tone Moderate Comments Muscle Tone Comments Pt notd increased flexor tone during exertion. OT Sensation Assessment Comments Summary Comments Pt states sensation feels different on the left side, however no change from before. M9 OT- IP Assessment and Plan Start: 12/31/19 14:02 Freq: Status: Active Protocol: Document 01/01/20 09:51 [facility] (Rec: 01/01/20 12:32 [facility] [id number]) OT Summary Assessment and Plan Potential Rehabilitation Potential Good Analytic Complexity at Evaluation Low Summary OT Impairments Range of Motion,Strength, Balance,Coordination, Functional Cognition, Functional Mobility,Self- Feeding,Grooming,Dressing, Toileting,Bathing,Toilet Transfers,Shower Transfers, Activity Tolerance Progress Towards Goals Progressing Toward Goals Assessment Summary Pt now new having new small acute infarcts involving right frontal loge,left parietal lobe and both pt and insistent on going home versus to the recommended skilled rehab. Pt's to participate in caregiver training and initially able to follow the suggested safety techniques to be able to assist her . Pt's states that her brother is also at the house to assist and that she does not have to go back to work pending how things go this weekend. Still pt has refused skilled rehab, pt going home with 24/7 assist home health. Treatment Plan OT Treatment Plan ADL Training,Functional Mobility,Patient/Family Education,Discharge Planning Discharge Recommendations OT Discharge Recommendations Home with 24/7 Assist,Home Health,SNF Rehab Transportation Needs at Discharge Private Vehicle
--- NOTE | 2020-01-01 12:51 | PC.NURSE ---
DISCHARGE: PATIENT AND SPOUSE CONFIRM UNDERSTANDING OF [facility] HOME INSTRUCTIONS. THEY WILL PREPRINT ANALYST NEW SCRIPTS AT [facility], THEY WILL CALL TO SCHEDULE A F/U APPT WITH DR. CASTILLO, THEY ARE ADVISED THAT [facility] WILL BE CALLING THEM ABOUT A HOLTER MONITOR. THEY ARE ADVISED NELLY SIMEON WILL BE FOLLOWING THEM AT HOME. THEY ARE ADVISED TO CALL TO SCHEDULE AN APPT WITH AN ENT PER MD WRITTEN INSTRUCTIONS IN THEIR DC HOME PACKET. THEY CONFIRM UNDERSTANDING OF ALL INSTRUCTIONS INCLUDING S/SX'S OF STROKE. LEFT BY WC WITH SOLDER DEPOSIT OPERATOR ESCORT TO VEHICLE IN NO S/SX'S OF DISTRESS W/ ALL BELONGINGS AND PAPERWORK.
== END 2020-01-01 12:45 | disposition home health service (06) ==
LOC: ED 17:36 → AC 17:49
PROVIDERS: Internal Medicine; Nurse Practitioner Adult Health; Admitting Provider Internal Medicine; Emergency Provider Emergency Medicine; PCP Internal Medicine; Referring Provider Emergency Medicine; Visit Provider Internal Medicine
DX: I63.9 Cerebral infarction, unspecified (principal); R29.818 Other symptoms and signs involving the nervous system; I69.822 Dysarthria following other cerebrovascular disease; I69.891 Dysphagia following other cerebrovascular disease; I69.854 Hemiplegia and hemiparesis following other cerebrovascular disease affecting left non-dominant side; R13.10 Dysphagia, unspecified; E78.5 Hyperlipidemia, unspecified; I10 Essential (primary) hypertension; I25.10 Atherosclerotic heart disease of native coronary artery without angina pectoris; Z95.2 Presence of prosthetic heart valve; Z87.891 Personal history of nicotine dependence; N40.1 Benign prostatic hyperplasia with lower urinary tract symptoms; R39.14 Feeling of incomplete bladder emptying; R35.1 Nocturia; R39.12 Poor urinary stream; R93.0 Abnormal findings on diagnostic imaging of skull and head, not elsewhere classified
CPT/HCPCS: 36415; 70450; 70548; 70553; 80048; 80061; 80305; 81001; 81003; 82962; 83735; 84443; 85025; 85610; 85730; 92523; 93005; 93010; 93306; 94760; 96360; 96361; 96372; 97116; 97162; 97165; 97530; 97535; 99284; 99285; G0378; A9579; J1650

== ENCOUNTER → 2020-08-15 20:35 | Outpatient (ROUT) | payer MEDICARE, SELFPAY ==
[2020-08-10 12:45] VITALS: BMI 34.4
[2020-08-15 21:10] LABS: Alanine Aminotransferase 23 IU/L (<50); Albumin 3.9 g/dL (3.5-5.0); Albumin Globulin Ratio 1.3 (1.0-2.8); Alkaline Phosphatase 73 U/L (38-126); Aspartate Aminotransferase 36 IU/L (17-59); BUN Creatinine Ratio 21.2 (6-22); Bilirubin Total 0.5 mg/dL (0.2-1.3); Blood Urea Nitrogen 14 mg/dL (9-20); Calcium 9.4 mg/dL (8.4-10.2); Carbon Dioxide 31 mmol/L (22-32); Chloride 105 mmol/L (98-107); Cholesterol 143 mg/dL (140-199); Estimated Glomerular Filt Rate > 60.0 mL/min (>60); Glucose 87 mg/dL (80-110); HDL Cholesterol 51 mg/dL (40-60); HEMOLYSIS < 15 (0-50); LDL Cholesterol Calculated 73 mg/dL (<100); Sodium 139 mmol/L (137-145); Total Protein 6.9 g/dL (6.3-8.2); Triglycerides 93 mg/dL (35-150)
[2020-08-15 21:20] LABS: Add Manual Diff / Slide Review NO; Basophils Absolute Auto 0 /uL (0-100); Basophils Percent Auto 0.5 % (0-2); Eosinophils Absolute Auto 100 /uL (0-450); Eosinophils Percent Auto 2.6 % (2-4); Hematocrit 35.3 % (41-53); Hemoglobin 12.3 g/dL (13.5-17.5); Lymphocytes Absolute Auto 800 /uL (1100-4500); Lymphocytes Percent Auto 17.8 % (25-40); Mean Corpuscular HGB Conc 34.8 % (30-36); Mean Corpuscular Hemoglobin 31.7 PG (26-34); Mean Corpuscular Volume 91.2 fL (80-100); Monocytes Absolute Auto 300 /uL (0-900); Monocytes Percent Auto 6.4 % (3-14); Neutrophils Absolute Auto 3200 /uL (1500-7000); Neutrophils Percent Auto 72.7 % (50-75); Platelet Count 195 X10^3/uL (150-400); Red Blood Cell Count 3.87 X10^6/uL (4.5-5.9); Red Cell Distribution Width 13.9 % (11.6-14.8); White Blood Cell Count 4.4 X10^3/uL (4.5-11.0)
[2020-08-15 21:39] LABS: TSH w/ Reflex to FT4 2.55 uIU/mL (0.47-4.68)
[2020-08-15 22:01] LABS: NT-proBNP (BNP-Adult 18+) 300 pg/mL (<450)
== END ==
PROVIDERS: PCP Internal Medicine; Visit Provider Internal Medicine
DX: I50.31 Acute diastolic (congestive) heart failure (principal); E78.2 Mixed hyperlipidemia
CPT/HCPCS: 80053; 80061; 83880; 84443; 85025

== ENCOUNTER → 2020-08-26 18:52 | Outpatient (ROUT) | payer MEDICARE, SELFPAY ==
[2020-08-10 12:45] VITALS: BMI 34.4
[2020-08-26 19:05] LABS: BUN Creatinine Ratio 16.7 (6-22); Blood Urea Nitrogen 14 mg/dL (9-20); Calcium 9.2 mg/dL (8.4-10.2); Carbon Dioxide 32 mmol/L (22-32); Chloride 100 mmol/L (98-107); Estimated Glomerular Filt Rate > 60.0 mL/min (>60); Glucose 114 mg/dL (80-110); HEMOLYSIS < 15 (0-50); Potassium 3.8 mmol/L (3.4-5.1); Sodium 138 mmol/L (137-145)
== END ==
PROVIDERS: PCP Internal Medicine; Visit Provider Internal Medicine
DX: I50.31 Acute diastolic (congestive) heart failure (principal)
CPT/HCPCS: 80048

== ENCOUNTER 2020-08-28 13:24 | Emergency (ER) | payer MEDICARE, SELFPAY ==
[2020-08-10 12:45] VITALS: BMI 34.4
[2020-08-28] VITALS (9 sets, daily range): BP systolic 131–163; BP diastolic 69–85; PULSE 85–96; RESP 16–22; TEMP 36.4; O2SAT 92–97; BMI 34.4
--- NOTE | 2020-08-28 13:58 | ED.GENADULT ---
HPI - General Adult General Chief complaint: Dizziness Stated complaint: Dizziness Time Seen by Provider: 08/28/20 13:36 Source: patient and EMS Mode of arrival: EMS Limitations: no limitations History of Present Illness HPI narrative: 79-year-old male with a long medical history of cardiovascular disease and also has had a stroke in the past was brought in by EMS for concerns of dizziness. He describes it as a unsteadiness especially when he sits up and not a room spinning sensation. He reports that he has had a longstanding history of these issues in the past however he states that this morning it seems to be worse and lasting longer than normal. He states that in character it feels just like his prior issues of dizziness. His symptoms occurred right after he woke up at approximately 0400 hours this morning. He called EMS and by the time that they arrived he stated that he was feeling much better. He decided not to come to the emergency department at that time. He then went back to bed and woke up again late morning and again had return of the symptoms. Because the symptoms did not improve this time he called EMS to bring him to the emergency department. By the time that I evaluated him he had received Zofran by paramedics which he states improved his symptoms tremendously. He was no longer nauseous. He states that his lightheadedness had vastly improved but he did not think that he was back to normal. He denies any other associated symptoms. Related Data Home Medications Medication Instructions Recorded Confirmed CoQ-10 1 cap PO DAILY #0 04/27/17 12/30/19 Probiotic 1 cap PO DAILY #0 04/27/17 12/30/19 losartan [Cozaar] 50 mg PO DAILY #0 10/05/17 12/30/19 Multivitamin 50 Plus 1 tab PO DAILY 12/30/19 12/30/19 amlodipine [Norvasc] 5 mg PO DAILY 12/30/19 12/30/19 baclofen 10 mg PO QPM 12/30/19 12/30/19 cholecalciferol (vitamin D3) 5,000 unit PO DAILY 12/30/19 12/30/19 [Vitamin D3] sertraline 50 mg PO QPM 12/30/19 12/30/19 Previous Rx's Medication Instructions Recorded acetaminophen 325 - 650 mg PO Q6HP PRN #30 tab 09/14/16 Allergies Allergy/AdvReac Type Severity Reaction Status Date / Time No Known Drug Allergies Allergy Verified 12/30/19 15:30 Review of Systems Constitutional Constitutional: Denies fever(s), Denies headache(s) and Denies weakness ENT Ears, Nose, Mouth, and Throat: Denies vertigo, Reports dizziness and Denies headache(s) Cardiovascular Cardiovascular: Denies chest pain and Denies dyspnea Respiratory Respiratory: Denies dyspnea Gastrointestinal Gastrointestinal: Denies abdominal pain, Reports nausea and Denies vomiting Genitourinary Genitourinary: Denies dysuria Genitourinary: Denies dysuria Musculoskeletal Musculoskeletal: Denies arthralgias and Denies myalgias Integumentary/Breasts Skin/Breast: Denies rash Neurologic Neurologic: Denies behavioral changes, Denies confusion, Denies vertigo, Reports dizziness, Denies headache(s), Denies localized weakness, Denies other visual disturbances and Denies weakness Psychiatric Psychiatric: Denies behavioral changes and Denies confusion Hematologic/Lymphatic Hematologic/Lymphatic: Denies easy bleeding and Denies easy bruising Allergic/Immunologic Allergic/Immunologic: Denies urticaria Patient History Medical History Coronary artery disease (Acute) CVA (cerebral vascular accident) (Acute) Fractured hip (Acute) Frequent falls (Acute) Heart valve disease (Acute) Hyperlipidemia (Acute) Hypertension (Acute) Vertigo (Acute) Surgical History (Updated 12/31/19 @ 00:04 by CHATO Ellis) H/O aortic valve replacement (Acute) History of coronary artery bypass graft x 1 (Acute) History of hip surgery (Acute) Family History (Updated 12/31/19 @ 00:06 by CHATO Ellis) Father Diabetes mellitus Hypertension Coronary artery disease Mother Coronary artery disease Heart attack Social History household members: spouse Smoking Status: Former smoker Smoking Status: Former smoker alcohol intake frequency: holidays/special occasions only Substance Use Type: does not use Exam Initial Vital Signs Initial Vital Signs: Vital Signs Temperature 97.6 F 08/28/20 13:50 Pulse Rate 90 08/28/20 13:50 Respiratory Rate 16 08/28/20 13:50 Blood Pressure 163/85 H 08/28/20 13:50 Pulse Oximetry 97 08/28/20 13:50 Const General: cooperative, comfortable and well developed Limitations: mental status not altered HENMT Head: normal to inspection and normocephalic Resp Effort & Inspection: normal respiratory effort Auscultation: clear to auscultation bilaterally Cardio Rate: regular rate Rhythm: regular rhythm GI Inspection: non-distended Palpation: soft Skin Lesions: no lesions Rashes: no rashes Neuro General: patient alert, patient awake and patient oriented x3 Cranial Nerves: CN's II-XI intact bilaterally Cognition: normal cognition Speech: speech normal Extrem General: capillary refill normal Psych Appearance: grossly normal and well kempt Scores GCS Raymond coma scale eye opening: Spontaneous Raymond coma scale verbal response: Orientated Raymond coma scale motor response: Obey commands Raymond coma scale total score: 15 Course Orders Ordered: ED Orders 08/28/20 13:48 EKG-12 Lead Stat 08/28/20 13:59 CT head/brain wo con Stat 08/28/20 14:30 Complete Blood Count AUTO DIFF Stat Comprehensive Metabolic Panel Stat Lipase Stat NT-proBNP (BNP-Adult 18+) Stat Partial Thromboplastin Time Stat Prothrombin Time INR Stat Troponin & CK Cardiac Panel Stat Vital Signs Vital signs: Vital Signs - 8 hr 08/28/20 13:50 08/28/20 14:05 08/28/20 14:30 Temperature 97.6 F Pulse Rate 90 88 86 Respiratory Rate 16 18 20 Blood Pressure 163/85 H Pulse Oximetry 97 96 96 08/28/20 14:46 08/28/20 15:00 08/28/20 15:31 Temperature Pulse Rate 89 90 Respiratory Rate 18 19 Blood Pressure 147/77 H 131/69 160/70 H Pulse Oximetry 95 92 08/28/20 16:00 08/28/20 16:14 08/28/20 16:30 Temperature Pulse Rate 96 H 85 Respiratory Rate 22 17 Blood Pressure 150/76 H Pulse Oximetry 96 Medical Decision Making Lab Data Lab results reviewed: Yes I reviewed the patient's lab results. Result diagrams: 08/28/20 14:30 08/28/20 14:30 Labs: Lab Results 08/28/20 08/28/20 08/28/20 Range/Units 14:30 14:30 14:30 WBC 7.1 (4.5-11.0) X10^3/uL RBC 4.09 L (4.5-5.9) X10^6/uL Hgb 12.8 L (13.5-17.5) g/dL Hct 37.1 L (41-53) % MCV 90.6 (80-100) fL MCH 31.2 (26-34) PG MCHC 34.4 (30-36) % RDW 13.4 (11.6-14.8) % Plt Count 215 (150-400) X10^3/uL Neut % (Auto) 81.7 H (50-75) % Lymph % (Auto) 11.4 L (25-40) % [place] % (Auto) 5.4 (3-14) % Eos % (Auto) 0.8 L (2-4) % Baso % (Auto) 0.7 (0-2) % Neut # (Auto) 5800 (6482-2521) /uL Lymph # (Auto) 800 L (4558-1364) /uL [place] # (Auto) 400 (0-900) /uL Eos # (Auto) 100 (0-450) /uL Baso # (Auto) 0 (0-100) /uL PT 12.7 (10.1-12.7) SECONDS INR 1.1 (0.9-1.3) APTT 29 (26.4-36.2) SECONDS Sodium 139 (137-145) mmol/L Potassium 4.0 (3.4-5.1) mmol/L Chloride 104 (98-107) mmol/L Carbon Dioxide 32 (22-32) mmol/L BUN 12 (9-20) mg/dL Creatinine 0.67 (0.66-1.25) mg/dL Estimated GFR > 60.0 (>60) mL/min BUN/Creatinine Ratio 17.9 (6-22) Glucose 124 H (80-110) mg/dL Calcium 9.6 (8.4-10.2) mg/dL Total Bilirubin 0.6 (0.2-1.3) mg/dL AST 47 (17-59) IU/L ALT 30 (<50) IU/L Alkaline Phosphatase 82 (38-126) U/L Total Creatine Kinase (55-170) U/L CK-MB (CK-2) (<2.37) ng/mL CK-MB (CK-2) Rel Index (1.5-5.0) % Troponin I (0.01-0.034) ng/mL NT-Pro-B Natriuret Pep (<450) pg/mL Total Protein 7.8 (6.3-8.2) g/dL Albumin 4.3 (3.5-5.0) g/dL Globulin 3.5 (1.7-4.1) g/dL Albumin/Globulin Ratio 1.2 (1.0-2.8) Lipase (23-300) U/L 08/28/20 Range/Units 14:30 WBC (4.5-11.0) X10^3/uL RBC (4.5-5.9) X10^6/uL Hgb (13.5-17.5) g/dL Hct (41-53) % MCV (80-100) fL MCH (26-34) PG MCHC (30-36) % RDW (11.6-14.8) % Plt Count (150-400) X10^3/uL Neut % (Auto) (50-75) % Lymph % (Auto) (25-40) % [place] % (Auto) (3-14) % Eos % (Auto) (2-4) % Baso % (Auto) (0-2) % Neut # (Auto) (6887-5412) /uL Lymph # (Auto) (0292-6363) /uL [place] # (Auto) (0-900) /uL Eos # (Auto) (0-450) /uL Baso # (Auto) (0-100) /uL PT (10.1-12.7) SECONDS INR (0.9-1.3) APTT (26.4-36.2) SECONDS Sodium (137-145) mmol/L Potassium (3.4-5.1) mmol/L Chloride (98-107) mmol/L Carbon Dioxide (22-32) mmol/L BUN (9-20) mg/dL Creatinine (0.66-1.25) mg/dL Estimated GFR (>60) mL/min BUN/Creatinine Ratio (6-22) Glucose (80-110) mg/dL Calcium (8.4-10.2) mg/dL Total Bilirubin (0.2-1.3) mg/dL AST (17-59) IU/L ALT (<50) IU/L Alkaline Phosphatase (38-126) U/L Total Creatine Kinase 172 H (55-170) U/L CK-MB (CK-2) 6.00 H (<2.37) ng/mL CK-MB (CK-2) Rel Index 3.5 (1.5-5.0) % Troponin I 0.018 (0.01-0.034) ng/mL NT-Pro-B Natriuret Pep 287 (<450) pg/mL Total Protein (6.3-8.2) g/dL Albumin (3.5-5.0) g/dL Globulin (1.7-4.1) g/dL Albumin/Globulin Ratio (1.0-2.8) Lipase 68 (23-300) U/L Imaging Data CT scan - head: Radiologist's Impression: [address] [address] [address] Scan Report Signed Patient: Bautista Angel [facility]#: [id number] : 3Acct:[id number] Age/Sex: 79 / MDate of Service: 08/28/20 Loc: ED Accession Number: [id number] Procedure: CT head/brain wo con Ordering Provider: Yair Sheffield D.O. PROCEDURE: CT HEAD/BRAIN WO CON INDICATIONS: dizziness hx of CVA TECHNIQUE: Noncontrast 4.5 mm thick angled axial sections acquired from the foramen magnum to the vertex, with coronal and sagittal reformats. For radiation dose reduction, the following was used: automated exposure control, adjustment of mA and/or kV according to patient size. COMPARISON: [facility], CT, HEAD WITHOUT CONTRAST, 04/27/2017, 9:18. [facility], CT, HEAD WITHOUT CONTRAST, 12/17/2016, 6:56. FINDINGS: Image quality: Excellent. CSF spaces: Basal cisterns are patent. No extra-axial fluid collections. The ventricles are symmetric in size and shape. Brain: No intracranial bleeds or masses. There is cerebral volume loss for age, with resultant ventricular and sulcal prominence. There are moderate periventricular and deep white matter chronic small vessel ischemic changes. Stable appearance of remote small right basal ganglia and right cerebellar infarctions. There is intracranial internal carotid artery atherosclerosis. Skull and face: Calvarium and visualized facial bones appear intact, without suspicious lesions. Sinuses: Visualized sinuses and mastoids are clear. IMPRESSION: Stable CT evaluation of the head without acute intracranial abnormalities. Stable age related senescent changes and sequela of moderate chronic small vessel ischemic disease. Stable appearance of remote small right basal ganglial and right cerebellar infarctions. Dictated by: Dung Josue M.D. on 08/28/2020 at 13:54 Approved by: Dung Josue M.D. on 08/28/2020 at 13:57 ECG Data Attestation: I personally reviewed and interpreted this ECG as follows: Prior ECG tracings: not available for review Interpretation: Sinus rhythm Ventricular rate 92 First degree AV block TN interval to 5 6 Normal QRS QTC [address] T wave changes MDM Narrative Medical decision making narrative: Patient's head CT was unremarkable. Per his report his neurologic findings to include his left-sided weakness and his inability to walk are not new for him. Per his report his neurologic exam is normal. During his time here he reported complete resolution of all of his symptoms. He has no headache. Was able to stand and then sit in a chair bedside which he reports made him feel even better. This is baseline for him not being able to walk. He does have a motorized wheelchair at home. Consider multiple etiologies to include CVA, TIA, vertigo, BPPV and others. I feel given his workup. Emergency department away that he is improving that he can be discharged home with follow-up with his primary provider. Patient expressed understanding this. He expressed understanding and agreement. Discharge Plan Departure Patient Disposition: Home Clinical Impression: Dizzinesses Discharge Date/Time: 08/28/20 16:50 Instructions: DI for Dizziness-Nonvertigo Activity Restrictions/Additional Instructions: Continue all of your medications as directed. Contact your primary provider for follow-up and keep all of your scheduled medical appointments. Return to the emergency department for any new or worsening symptoms Prescriptions: No Action acetaminophen 325 MG tablet 325 - 650 mg PO Q6HP PRNQty: 30 RF: 0 CoQ-10 1 cap PO DAILY Qty: 0 RF: 0 Probiotic 1 cap PO DAILY Qty: 0 RF: 0 losartan [Cozaar] 50 MG tablet 50 mg PO DAILY Qty: 0 RF: 0 baclofen 10 mg tablet 10 mg PO QPM RF: 0 sertraline 50 mg tablet 50 mg PO QPM RF: 0 amlodipine [Norvasc] 5 MG tablet 5 mg PO DAILY RF: 0 Multivitamin 50 Plus Tablet 1 tab PO DAILY RF: 0 cholecalciferol (vitamin D3) [Vitamin D3] 125 mcg (5,000 unit) Tablet 5,000 unit PO DAILY RF: 0 Referrals: Servando Walker MD [Primary Care Provider] -
[2020-08-28 14:39] LABS: Add Manual Diff / Slide Review NO; Basophils Absolute Auto 0 /uL (0-100); Basophils Percent Auto 0.7 % (0-2); Eosinophils Absolute Auto 100 /uL (0-450); Eosinophils Percent Auto 0.8 % (2-4); Hematocrit 37.1 % (41-53); Hemoglobin 12.8 g/dL (13.5-17.5); Lymphocytes Absolute Auto 800 /uL (1100-4500); Lymphocytes Percent Auto 11.4 % (25-40); Mean Corpuscular HGB Conc 34.4 % (30-36); Mean Corpuscular Hemoglobin 31.2 PG (26-34); Mean Corpuscular Volume 90.6 fL (80-100); Monocytes Absolute Auto 400 /uL (0-900); Monocytes Percent Auto 5.4 % (3-14); Neutrophils Absolute Auto 5800 /uL (1500-7000); Neutrophils Percent Auto 81.7 % (50-75); Platelet Count 215 X10^3/uL (150-400); Red Blood Cell Count 4.09 X10^6/uL (4.5-5.9); Red Cell Distribution Width 13.4 % (11.6-14.8); White Blood Cell Count 7.1 X10^3/uL (4.5-11.0)
[2020-08-28 14:55] LABS: INR 1.1 (0.9-1.3); Prothrombin Time 12.7 SECONDS (10.1-12.7)
[2020-08-28 14:58] LABS: PTT Partial Thromboplastin Tim 29 SECONDS (26.4-36.2)
[2020-08-28 15:07] LABS: Alanine Aminotransferase 30 IU/L (<50); Albumin 4.3 g/dL (3.5-5.0); Albumin Globulin Ratio 1.2 (1.0-2.8); Alkaline Phosphatase 82 U/L (38-126); Aspartate Aminotransferase 47 IU/L (17-59); BUN Creatinine Ratio 17.9 (6-22); Bilirubin Total 0.6 mg/dL (0.2-1.3); Blood Urea Nitrogen 12 mg/dL (9-20); Calcium 9.6 mg/dL (8.4-10.2); Carbon Dioxide 32 mmol/L (22-32); Chloride 104 mmol/L (98-107); Creatine Kinase 172 U/L (55-170); Estimated Glomerular Filt Rate > 60.0 mL/min (>60); Globulin 3.5 g/dL (1.7-4.1); Glucose 124 mg/dL (80-110); HEMOLYSIS < 15 (0-50); Lipase 68 U/L (23-300); Sodium 139 mmol/L (137-145); Total Protein 7.8 g/dL (6.3-8.2)
[2020-08-28 15:19] LABS: NT-proBNP (BNP-Adult 18+) 287 pg/mL (<450); Troponin I 0.018 ng/mL (0.01-0.034)
[2020-08-28 15:23] LABS: CKMB % Relative Index 3.5 % (1.5-5.0)
--- NOTE | 2020-08-28 16:20 | PC.NURSE ---
Assisted patient into seated position in recumbant chair per Dr Feliciano request with assistance of TAI Shelton and gait belt. Patient tolerated procedure well and denied dizziness. Stated SOB felt better in seated position. Vitals retaken and HR 88, BP 150/76, O2 96% on room air. patient given cup of water and call light. Provider notified.
== END 2020-08-28 16:50 | disposition home or self-care (01) ==
PROVIDERS: Emergency Provider Emergency Medicine; PCP Internal Medicine
DX: R42 Dizziness and giddiness (principal); Z86.73 Personal history of transient ischemic attack (TIA), and cerebral infarction without residual deficits; R07.9 Chest pain, unspecified
CPT/HCPCS: 36415; 70450; 80053; 82550; 82553; 83690; 83880; 84484; 85025; 85610; 85730; 93005; 99284

== ENCOUNTER 2020-11-02 09:28 | Emergency (ER) | payer OTHER, SELFPAY ==
[2020-08-10 12:45] VITALS: BMI 34.4
--- NOTE | 2020-11-02 09:34 | ED.NECK ---
HPI - Neck Pain/Injury General Chief Complaint: Neck Pain/Injury Stated Complaint: R Neck pain Time Seen by Provider: 11/02/20 09:33 Source: patient, EMS and old records reviewed Mode of arrival: EMS Limitations: no limitations History of Present Illness HPI Narrative: Patient is a 79-year-old male with history of coronary artery disease and previous stroke with left-sided deficit presenting today with right-sided neck pain. He said it started yesterday he denies any injury it is worse whenever he rotates his head to the right. He sometimes gets some tingling down his right arm he has no weakness. He states he has tingling in his right thumb 2nd and 3rd which started yesterday with his neck. That seems to come and go. No chest pain. He denies any facial numbness. He says yesterday he took some ibuprofen it only helped a little. He has taken nothing today, but the pain seems to be worse MD complaint: neck pain Onset (ago): day(s) (1) Radiation: right lateral Severity: moderate Quality: spasming Duration: constant Related Data Home Medications Medication Instructions Recorded Confirmed CoQ-10 1 cap PO DAILY #0 04/27/17 12/30/19 Probiotic 1 cap PO DAILY #0 04/27/17 12/30/19 losartan [Cozaar] 50 mg PO DAILY #0 10/05/17 12/30/19 Multivitamin 50 Plus 1 tab PO DAILY 12/30/19 12/30/19 amlodipine [Norvasc] 5 mg PO DAILY 12/30/19 12/30/19 baclofen 10 mg PO QPM 12/30/19 12/30/19 cholecalciferol (vitamin D3) 5,000 unit PO DAILY 12/30/19 12/30/19 [Vitamin D3] sertraline 50 mg PO QPM 12/30/19 12/30/19 Previous Rx's Medication Instructions Recorded acetaminophen 325 - 650 mg PO Q6HP PRN #30 tab 09/14/16 Allergies Allergy/AdvReac Type Severity Reaction Status Date / Time No Known Drug Allergies Allergy Verified 11/02/20 09:36 Review of Systems Review of Systems Narrative: GENERAL: Denies chills, fatigue, malaise, fever, sweats, travel HEENT: Denies sinus pain, ear pain, sore throat, difficulty swallowing, neck pain RESPIRATORY: Denies dyspnea, cough, wheezing, hemoptysis, sputum. CARDIOVASCULAR: Denies chest pain, palpitations, orthopnea, edema GASTROINTESTINAL: Denies nausea, vomiting, abdominal pain, diarrhea, constipation, melena. : Denies dysuria, frequency, incontinence, hematuria, urinary retention, flank pain. MUSCULOSKELETAL: See HPI SKIN: No rash, no erythema, no pruritus NEUROLOGIC: Denies weakness, dizziness, headache, numbness, change in speech, confusion PSYCHIATRIC: No concerning psychosocial issues. 12 point review of systems is negative except for those stated above and HPI Patient History Medical History (Updated 11/02/20 @ 10:33 by Sarah Saini DO) Coronary artery disease CVA (cerebral vascular accident) Fractured hip Frequent falls Heart valve disease Hyperlipidemia Hypertension Vertigo Surgical History H/O aortic valve replacement History of coronary artery bypass graft x 1 History of hip surgery Family History Father Diabetes mellitus Hypertension Coronary artery disease Mother Coronary artery disease Heart attack Social History household members: spouse Smoking Status: Former smoker Smoking Status: Former smoker alcohol intake frequency: holidays/special occasions only Substance Use Type: does not use Exam Initial Vital Signs Initial Vital Signs: Vital Signs Temperature 97.6 F 11/02/20 09:36 Pulse Rate 88 11/02/20 09:36 Respiratory Rate 18 11/02/20 09:36 Blood Pressure 162/98 H 11/02/20 09:36 Pulse Oximetry 98 11/02/20 09:36 GENERAL: Alert pleasant well-appearing 79-year-old male and in no acute distress. HEENT: Head atraumatic,EOMI, pupils reactive, face symmetric, moist mucous membranes NECK: Tenderness in the lateral spinal muscles reproduced on neck is turned towards the right. No vertebral tenderness or step-off CARDIOVASCULAR: Regular rate and rhythm without murmurs, rubs or gallops. RESPIRATORY: Breath sounds equal bilaterally, no wheezes rales or rhonchi. ABDOMEN: Soft, nontender. Normoactive bowel sounds all 4 quadrants. No guarding or rebound. EXTREMITIES: Normal range of motion, no clubbing or edema. Neurovascularly intact NEUROLOGICAL: Alert and oriented x4.Normal gait and speech. Week left-sided arm at baseline from previous stroke. 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 Course Orders Ordered: Discontinued Medications Ketorolac Tromethamine (Ketorolac 60 Mg/2 Ml Vial) 30 mg IM NOW ONE Stop: 11/02/20 09:38 Last Admin: 11/02/20 09:43 Dose: 30 mg Documented by: MMINOR Vital Signs Vital signs: Vital Signs - 8 hr 11/02/20 09:36 11/02/20 09:46 11/02/20 10:00 Temperature 97.6 F Pulse Rate 88 87 81 Respiratory Rate 18 7 L 18 Blood Pressure 162/98 H 162/98 H 142/73 H Pulse Oximetry 98 98 97 11/02/20 10:30 Temperature Pulse Rate 87 Respiratory Rate 17 Blood Pressure 154/75 H Pulse Oximetry 98 MDM - Neck Pain/Injury MDM Narrative Medical decision making narrative: Pain is significantly better after Toradol. It is worse with movement and there is an obvious spasm. This seems to be musculoskeletal there was no injury no midline pain no need for imaging at this time. Discharge Plan Departure Patient Disposition: Home Clinical Impression: Strain of neck muscle Qualifiers: Encounter type: initial encounter Qualified Code(s): S16.1XXA - Strain of muscle, fascia and tendon at neck level, initial encounter Instructions: Neck Sprain, DI for Muscle Spasm Activity Restrictions/Additional Instructions: *You have been diagnosed with cervical muscle strain *What to do: Increase activity as tolerated, heating pad light movement is encouraged *Continue to take medications as directed Ibuprofen 600 mg every 6 8 hours if needed for [id number] pain do not take until 5:00 p.m. this evening You are on a muscle relaxer baclofen, continue to take as directed *Follow up with your primary care provider in 2-3 days *Return to ER if you should have increasing weakness, pain numbness tingling or any new, worsening or concerning symptoms Prescriptions: No Action acetaminophen 325 MG tablet 325 - 650 mg PO Q6HP PRNQty: 30 RF: 0 CoQ-10 1 cap PO DAILY Qty: 0 RF: 0 Probiotic 1 cap PO DAILY Qty: 0 RF: 0 losartan [Cozaar] 50 MG tablet 50 mg PO DAILY Qty: 0 RF: 0 baclofen 10 mg tablet 10 mg PO QPM RF: 0 sertraline 50 mg tablet 50 mg PO QPM RF: 0 amlodipine [Norvasc] 5 MG tablet 5 mg PO DAILY RF: 0 Multivitamin 50 Plus Tablet 1 tab PO DAILY RF: 0 cholecalciferol (vitamin D3) [Vitamin D3] 125 mcg (5,000 unit) Tablet 5,000 unit PO DAILY RF: 0 Referrals: Servando Walker MD [Primary Care Provider] -
[2020-11-02 09:36] VITALS: BP 162/98; PULSE 88; RESP 18; TEMP 36.4; O2SAT 98; BMI 34.2
[2020-11-02] MEDS: KETOROLAC 60 MG/2 ML VIAL 30 MG IM (09:43)
[2020-11-02 09:46] VITALS: BP 162/98; PULSE 87; RESP 7; O2SAT 98
[2020-11-02 10:00] VITALS: BP 142/73; PULSE 81; RESP 18; O2SAT 97
[2020-11-02 10:30] VITALS: BP 154/75; PULSE 87; RESP 17; O2SAT 98
== END 2020-11-02 11:03 | disposition home or self-care (01) ==
PROVIDERS: Emergency Provider Emergency Medicine; PCP Internal Medicine
DX: S16.1XXA Strain of muscle, fascia and tendon at neck level, initial encounter (principal); I25.10 Atherosclerotic heart disease of native coronary artery without angina pectoris; E78.5 Hyperlipidemia, unspecified; I10 Essential (primary) hypertension
CPT/HCPCS: 96372; 99281; 99283; J1885

== ENCOUNTER 2020-12-04 16:31 | Emergency (ER) | payer OTHER, SELFPAY ==
[2020-08-10 12:45] VITALS: BMI 34.4
[2020-12-04] VITALS (9 sets, daily range): BP systolic 114–122; BP diastolic 55–69; PULSE 74–88; RESP 18–26; TEMP 36.7; O2SAT 96–98; BMI 34.2
--- NOTE | 2020-12-04 16:39 | ED.CHESTPAIN ---
HPI - Chest Pain General Chief Complaint: Shortness of Breath/Dyspnea Stated Complaint: Chest pain Time Seen by Provider: 12/04/20 16:31 History of Present Illness HPI narrative: 80-year-old male former smoker with history of prior CVA with left-sided weakness, CABG x1 with valve replacement, hypertension, hyperlipidemia presents with feeling a bit fatigued over the past few days, increasingly short of breath over the course of the day particularly with any exertion and the development of some retrosternal chest pressure this afternoon. He states that shortness of breath is worse with exertion and improves with rest. He was recently started on a CPAP unit for use at night with his sleep apnea and states it has been working well. His chest pain has been rather persistent for the past few hours but does seem to intensify to a maximum of 5/10 when he was pulling himself up with the use of an speech language pathology assistant bar. He denies any radiation. He denies any dizziness or lightheadedness. He has had no nausea or vomiting and denies any unexplained diaphoresis. He denies any history of blood clot. Ten days ago he had a prostate surgery up in [place]. He does not use any anticoagulation. He has no known diagnoses of cancer MD complaint: chest pain Onset (ago): hour(s) Duration: constant Onset: during exertion Pain location: substernal Severity: moderate Quality: tightness and aching Pain radiation: none Relieving factors: nothing Exacerbating factors: exertion Context: recent surgery Associated symptoms: dyspnea Treatments prior to arrival chest pain: none Related Data Home Medications Medication Instructions Recorded Confirmed CoQ-10 1 cap PO DAILY #0 04/27/17 12/30/19 Probiotic 1 cap PO DAILY #0 04/27/17 12/30/19 losartan [Cozaar] 50 mg PO DAILY #0 10/05/17 12/04/20 Multivitamin 50 Plus 1 tab PO DAILY 12/30/19 12/30/19 amlodipine [Norvasc] 5 mg PO DAILY 12/30/19 12/04/20 baclofen 10 mg PO QPM 12/30/19 12/30/19 cholecalciferol (vitamin D3) 5,000 unit PO DAILY 12/30/19 12/30/19 [Vitamin D3] sertraline 50 mg PO QPM 12/30/19 12/04/20 alfuzosin 10 mg PO DAILY 12/04/20 12/04/20 aspirin [Aspirin Low Dose] 81 mg PO DAILY 12/04/20 12/04/20 rosuvastatin 40 mg PO DAILY 12/04/20 12/04/20 torsemide 10 mg PO DAILY 12/04/20 12/04/20 Previous Rx's Medication Instructions Recorded acetaminophen 325 - 650 mg PO Q6HP PRN #30 tab 09/14/16 Allergies Allergy/AdvReac Type Severity Reaction Status Date / Time No Known Drug Allergies Allergy Verified 12/04/20 16:42 Review of Systems Constitutional Constitutional: Denies chills, Denies fatigue, Denies fever(s), Denies frequent falls, Denies lethargy and Denies weakness Eyes Eyes: Denies change in vision, Denies eye discharge, Denies irritation and Denies loss of vision ENT Ears, Nose, Mouth, and Throat: Denies change in voice, Denies dizziness, Denies neck pain, Denies sore throat and Denies throat swelling Cardiovascular Cardiovascular: Reports chest pain, Denies irregular heart rhythm, Denies lightheadedness, Denies palpitations, Reports dyspnea, Reports dyspnea on exertion and Denies orthopnea Respiratory Respiratory: Denies cough, Reports dyspnea, Reports dyspnea on exertion and Reports wheezing Gastrointestinal Gastrointestinal: Denies abdominal pain, Denies change in bowel habits, Denies diarrhea, Denies nausea and Denies vomiting Musculoskeletal Musculoskeletal: Denies neck pain and Denies numbness Integumentary/Breasts Skin/Breast: Denies pruritus, Denies erythema, Denies rash and Denies wounds Neurologic Neurologic: Denies behavioral changes, Denies confusion, Denies dizziness, Denies frequent falls, Denies loss of vision, Denies numbness and Denies weakness Psychiatric Psychiatric: Denies anxiety, Denies behavioral changes, Denies confusion, Denies depression, Denies homicidal ideation and Denies suicidal ideation Endocrine Endocrine: Denies fatigue, Denies flushing and Denies palpitations Hematologic/Lymphatic Hematologic/Lymphatic: Denies easy bruising Allergic/Immunologic Allergic/Immunologic: Denies urticaria, Denies throat swelling and Reports wheezing Patient History Medical History (Updated 12/04/20 @ 19:14 by Jamaal Daugherty DO) Coronary artery disease CVA (cerebral vascular accident) Fractured hip Frequent falls Heart valve disease Hyperlipidemia Hypertension Vertigo Surgical History H/O aortic valve replacement History of coronary artery bypass graft x 1 History of hip surgery Family History Father Diabetes mellitus Hypertension Coronary artery disease Mother Coronary artery disease Heart attack Social History household members: spouse Smoking Status: Former smoker Smoking Status: Former smoker alcohol intake frequency: holidays/special occasions only Substance Use Type: does not use Exam Narrative Exam Narrative: GENERAL: [72] year old patient appears stated age. Well-nourished, well-developed patient, in mild distress. Visibly short of breath with the exertion required to help slide from ambulance cart to our gurney HEAD: Atraumatic. Normocephalic. EYES: Pupils equal round and reactive. Extraocular motions intact. No scleral icterus. No injection or drainage. ENT: Nose without bleeding, purulent drainage. Throat without erythema, tonsillar hypertrophy or exudate. Airway patent. NECK: Trachea midline. Non tender CARDIOVASCULAR: Regular rate and rhythm without murmurs, gallops, or rubs. RESPIRATORY: Increased work of breathing, audible wheeze with faint crackles in the bases GASTROINTESTINAL: Abdomen soft, non-tender, nondistended. EXTREMITIES: No edema or joint tenderness. BACK: Nontender without deformity or crepitance. No flank tenderness. NEURO: AOx3. Left upper and lower extremity weakness, residual from prior stroke SKIN: No rash or erythema of visible areas Initial Vital Signs Initial Vital Signs: Vital Signs Temperature 98.0 F 12/04/20 16:39 Pulse Rate 88 12/04/20 16:39 Respiratory Rate 18 12/04/20 16:39 Blood Pressure 115/55 L 12/04/20 16:39 Pulse Oximetry 98 12/04/20 16:39 Course Orders Ordered: Discontinued Medications Aspirin (Aspirin 81 Mg Chew Tab) 324 mg PO NOW ONE Stop: 12/04/20 19:17 Last Admin: 12/04/20 19:21 Dose: 324 mg Documented by: Furosemide (Furosemide 40 Mg/4 Ml Vial) 40 mg IV NOW ONE Stop: 12/04/20 16:52 Last Admin: 12/04/20 16:58 Dose: 40 mg Documented by: THEODORE Heparin Sodium (Porcine) (Heparin 5,000 Unit/Ml Vial) 7,500 unit IV NOW ONE Stop: 12/04/20 18:10 Last Admin: 12/04/20 18:16 Dose: 7,500 unit Documented by: Heparin Sodium/Dextrose (Heparin Drip) 25,000 unit in 500 mls @ 40.007 mls/hr IV CONT REYNA; Protocol Last Titration: 12/04/20 20:45 Dose: Infused Documented by: Methylprednisolone (Methylprednisolone 125 Mg/2 Ml Vial) 125 mg IV NOW ONE Stop: 12/04/20 16:40 Last Admin: 12/04/20 16:48 Dose: 125 mg Documented by: THEODORE Reevaluation(s) Reevaluation #1: patient continues to be pain free Consultations Consultation #1: call to [facility] (Lilly), happy to provide care, requests call to hospitalist Consultation #2: call to [facility] (Rigo). Happy to accept Time: 18:45 Vital Signs Vital signs: Vital Signs - 8 hr 12/04/20 16:39 12/04/20 18:07 12/04/20 18:30 Temperature 98.0 F Pulse Rate 88 77 83 Respiratory Rate 18 23 24 Blood Pressure 115/55 L Pulse Oximetry 98 96 97 12/04/20 19:00 Temperature Pulse Rate 78 Respiratory Rate 22 Blood Pressure Pulse Oximetry MDM - Chest Pain Lab Data Result diagrams: 12/04/20 16:54 12/04/20 16:54 Labs: Lab Results 12/04/20 12/04/20 12/04/20 Range/Units 16:54 16:54 16:54 WBC 8.2 (4.5-11.0) X10^3/uL RBC 3.29 L (4.5-5.9) X10^6/uL Hgb 9.8 L (13.5-17.5) g/dL Hct 28.3 L (41-53) % MCV 86.2 (80-100) fL MCH 29.9 (26-34) PG MCHC 34.7 (30-36) % RDW 13.9 (11.6-14.8) % Plt Count 221 (150-400) X10^3/uL Neut % (Auto) 83.5 H (50-75) % Lymph % (Auto) 8.8 L (25-40) % [place] % (Auto) 4.9 (3-14) % Eos % (Auto) 2.5 (2-4) % Baso % (Auto) 0.3 (0-2) % Neut # (Auto) 6900 (6955-3896) /uL Lymph # (Auto) 700 L (4383-3129) /uL [place] # (Auto) 400 (0-900) /uL Eos # (Auto) 200 (0-450) /uL Baso # (Auto) 0 (0-100) /uL PT (10.1-12.7) SECONDS INR (0.9-1.3) D-Dimer 2950 H (<230) ng/mL Sodium 134 L (137-145) mmol/L Potassium 3.6 (3.4-5.1) mmol/L Chloride 100 (98-107) mmol/L Carbon Dioxide 29 (22-32) mmol/L BUN 17 (9-20) mg/dL Creatinine 0.76 (0.66-1.25) mg/dL Estimated GFR > 60.0 (>60) mL/min BUN/Creatinine Ratio 22.4 H (6-22) Glucose 119 H (80-110) mg/dL Calcium 8.9 (8.4-10.2) mg/dL Magnesium 1.9 (1.6-2.3) mg/dL Total Bilirubin 0.3 (0.2-1.3) mg/dL AST 75 H (17-59) IU/L ALT 46 (<50) IU/L Alkaline Phosphatase 68 (38-126) U/L Total Creatine Kinase (55-170) U/L CK-MB (CK-2) (<2.37) ng/mL CK-MB (CK-2) Rel Index (1.5-5.0) % Troponin I (0.01-0.034) ng/mL C-Reactive Protein 16.3 H (<1.0) mg/dL NT-Pro-B Natriuret Pep 1560 H (<450) pg/mL Total Protein 6.8 (6.3-8.2) g/dL Albumin 3.5 (3.5-5.0) g/dL Globulin 3.3 (1.7-4.1) g/dL Albumin/Globulin Ratio 1.1 (1.0-2.8) Lipase 36 (23-300) U/L SARS-CoV-2 (PCR) (Negative) 12/04/20 12/04/20 12/04/20 Range/Units 16:54 16:54 17:05 WBC (4.5-11.0) X10^3/uL RBC (4.5-5.9) X10^6/uL Hgb (13.5-17.5) g/dL Hct (41-53) % MCV (80-100) fL MCH (26-34) PG MCHC (30-36) % RDW (11.6-14.8) % Plt Count (150-400) X10^3/uL Neut % (Auto) (50-75) % Lymph % (Auto) (25-40) % [place] % (Auto) (3-14) % Eos % (Auto) (2-4) % Baso % (Auto) (0-2) % Neut # (Auto) (6187-9282) /uL Lymph # (Auto) (9466-3813) /uL [place] # (Auto) (0-900) /uL Eos # (Auto) (0-450) /uL Baso # (Auto) (0-100) /uL PT 14.1 H (10.1-12.7) SECONDS INR 1.2 (0.9-1.3) D-Dimer (<230) ng/mL Sodium (137-145) mmol/L Potassium (3.4-5.1) mmol/L Chloride (98-107) mmol/L Carbon Dioxide (22-32) mmol/L BUN (9-20) mg/dL Creatinine (0.66-1.25) mg/dL Estimated GFR (>60) mL/min BUN/Creatinine Ratio (6-22) Glucose (80-110) mg/dL Calcium (8.4-10.2) mg/dL Magnesium (1.6-2.3) mg/dL Total Bilirubin (0.2-1.3) mg/dL AST (17-59) IU/L ALT (<50) IU/L Alkaline Phosphatase (38-126) U/L Total Creatine Kinase 194 H (55-170) U/L CK-MB (CK-2) 3.32 H (<2.37) ng/mL CK-MB (CK-2) Rel Index 1.7 (1.5-5.0) % Troponin I 0.227 H* (0.01-0.034) ng/mL C-Reactive Protein (<1.0) mg/dL NT-Pro-B Natriuret Pep (<450) pg/mL Total Protein (6.3-8.2) g/dL Albumin (3.5-5.0) g/dL Globulin (1.7-4.1) g/dL Albumin/Globulin Ratio (1.0-2.8) Lipase (23-300) U/L SARS-CoV-2 (PCR) Negative (Negative) Imaging Data CT scan - chest: Radiologist's Impression: [address] [id number] Scan ReportSigned Patient: Bautista Angel AMR#: [id number]: 3Acct:[id number]/Sex: 80 / MDate of Service: 12/04/20Loc: EDAccession Number: [id number] Procedure: CT angio chest PE protocol Ordering Provider: Jamaal Daugherty D.O. PROCEDURE: CT ANGIO CHEST PE PROTOCOL INDICATIONS: chest pain, SOB, critical D Dimer, recent surgery TECHNIQUE: After the administration of intravenous contrast, 2 mm thick sections acquired from the pulmonary apices to the posterior costophrenic angles. 3-dimensional maximum intensity projection (MIP) coronal and sagittal reformats were then acquired through the thorax. For radiation dose reduction, the following was used: automated exposure control, adjustment of mA and/or kV according to patient size. COMPARISON: [facility], CR, XR CHEST 1V, 12/04/2020, 17:27. FINDINGS: Image quality: Excellent. Pulmonary arteries: Pulmonary arteries are normal in size, and demonstrate no intraluminal filling defects to suggest central pulmonary embolism. Lungs and pleura: There is a pleural-based 6 mm posteromedial left upper lobe pulmonary nodule seen on image 81, series 5. Lungs are otherwise clear. No pleural effusions or pneumothorax. Central and peripheral airways are patent. No septal thickening or nodularity. Mediastinum: Heart size is normal, without pericardial effusion. No mediastinal or hilar adenopathy. Thoracic aorta is normal in caliber and enhancement. Esophagus is normal in caliber, without hiatal hernia. Postsurgical changes from previous coronary bypass procedure. Multiple mediastinum sternotomy wires are present. Bones and chest wall: No suspicious bony lesions. Ribs and thoracic spine appear intact throughout. Thyroid gland appears unremarkable. No axillary or supraclavicular adenopathy. Abdomen: Visualized upper abdominal solid organs appear normal in the early arterial phase of enhancement. IMPRESSION: 1. Negative for acute pulmonary emboli. 2. Chest without acute cardiopulmonary abnormalities. 3. There is a 6 mm posteromedial left upper lobe pulmonary nodule. Consider follow-up noncontrast low-dose chest CT in 12 months to document stability. Dictated by: Dung Josue M.D. on 12/04/2020 at 18:12 Approved by: Dung Josue M.D. on 12/04/2020 at 18:23 ECG Data Interpretation: Normal sinus rhythm, rate 84, no ST segmental elevation or depression. No hyperacute T waves or other obvious evidence of occlusive LA. No ectopy Critical Care Time Critical Care Time Critical Care Time: Yes Total Critical Care Time: 30 Attestation: The high probability of a clinically significant, sudden or life threatening deterioration of the [CV] system(s) required my full and direct attention, intervention and personal management. The aggregate critical care time was [30] minutes. This time is in addition to time spent performing reported procedures but includes the following: [x] Data Review and interpretation [x] Patient assessment and monitoring of vital signs [x] Documentation [x] Medication orders and management Discharge Plan Departure Patient Disposition: [facility] Clinical Impression: Acute non-ST elevation myocardial infarction (NSTEMI) Prescriptions: No Action acetaminophen 325 MG tablet 325 - 650 mg PO Q6HP PRNQty: 30 RF: 0 CoQ-10 1 cap PO DAILY Qty: 0 RF: 0 Probiotic 1 cap PO DAILY Qty: 0 RF: 0 losartan [Cozaar] 50 MG tablet 50 mg PO DAILY Qty: 0 RF: 0 torsemide 20 mg tablet 10 mg PO DAILY RF: 0 aspirin [Aspirin Low Dose] 81 mg Tablet,Delayed Release (Dr/Ec) 81 mg PO DAILY RF: 0 rosuvastatin 40 mg tablet 40 mg PO DAILY RF: 0 alfuzosin 10 mg Tablet Extended Release 24 Hr 10 mg PO DAILY RF: 0 baclofen 10 mg tablet 10 mg PO QPM RF: 0 sertraline 50 mg tablet 50 mg PO QPM RF: 0 amlodipine [Norvasc] 5 MG tablet 5 mg PO DAILY RF: 0 Multivitamin 50 Plus Tablet 1 tab PO DAILY RF: 0 cholecalciferol (vitamin D3) [Vitamin D3] 125 mcg (5,000 unit) Tablet 5,000 unit PO DAILY RF: 0 Referrals: Servando Walker MD [Primary Care Provider] -
--- NOTE | 2020-12-04 16:40 | DI.RAD.S_ITS ---
PROCEDURE: XR CHEST 1V INDICATIONS: fall, trauma, preop TECHNIQUE: One view of the chest was acquired. COMPARISON: [facility], , CHEST 1 VIEW, 12/17/2016, 7:02. [facility], , XR CHEST 2V, 07/11/2019, 17:10. FINDINGS: Surgical changes and devices: Sternotomy wires are seen, with the superior most 3 sternotomy wires disrupted, as before. An aortic valve prosthesis can be seen. Lungs and pleura: An incomplete inspiratory result is noted, causing a crowded appearance to the lung markings. No focal infiltrates are seen. No pneumothorax or significant pleural effusions are seen. Mediastinum: Mediastinal contours appear normal. Heart size is normal. Bones and chest wall: No suspicious bony lesions. Age-appropriate bony degenerative changes are seen. Overlying soft tissues appear unremarkable. IMPRESSION: Portable chest within normal limits. Postoperative and degenerative changes are seen. Dictated by: Jonathan Siddiqui M.D. on 12/04/2020 at 16:39 Approved by: Jonathan Siddiqui M.D. on 12/04/2020 at 16:41
[2020-12-04] MEDS: methylPREDNISolone 125 MG/2 ML VIAL IV (16:48)
[2020-12-04] MEDS: FUROSEMIDE 40 MG/4 ML VIAL IV (16:58)
[2020-12-04 17:14] LABS: INR 1.2 (0.9-1.3); Prothrombin Time 14.1 SECONDS (10.1-12.7)
[2020-12-04 17:15] LABS: Add Manual Diff / Slide Review NO; Basophils Absolute Auto 0 /uL (0-100); Basophils Percent Auto 0.3 % (0-2); Eosinophils Absolute Auto 200 /uL (0-450); Eosinophils Percent Auto 2.5 % (2-4); Hematocrit 28.3 % (41-53); Hemoglobin 9.8 g/dL (13.5-17.5); Lymphocytes Absolute Auto 700 /uL (1100-4500); Lymphocytes Percent Auto 8.8 % (25-40); Mean Corpuscular HGB Conc 34.7 % (30-36); Mean Corpuscular Hemoglobin 29.9 PG (26-34); Mean Corpuscular Volume 86.2 fL (80-100); Monocytes Absolute Auto 400 /uL (0-900); Monocytes Percent Auto 4.9 % (3-14); Neutrophils Absolute Auto 6900 /uL (1500-7000); Neutrophils Percent Auto 83.5 % (50-75); Platelet Count 221 X10^3/uL (150-400); Red Blood Cell Count 3.29 X10^6/uL (4.5-5.9); Red Cell Distribution Width 13.9 % (11.6-14.8); White Blood Cell Count 8.2 X10^3/uL (4.5-11.0)
[2020-12-04 17:21] LABS: Creatine Kinase 194 U/L (55-170)
[2020-12-04 17:24] LABS: COVID19 -Nasal RAPID Negative (Negative)
[2020-12-04 17:25] LABS: Alanine Aminotransferase 46 IU/L (<50); Albumin 3.5 g/dL (3.5-5.0); Albumin Globulin Ratio 1.1 (1.0-2.8); Alkaline Phosphatase 68 U/L (38-126); Aspartate Aminotransferase 75 IU/L (17-59); BUN Creatinine Ratio 22.4 (6-22); Bilirubin Total 0.3 mg/dL (0.2-1.3); Blood Urea Nitrogen 17 mg/dL (9-20); Calcium 8.9 mg/dL (8.4-10.2); Carbon Dioxide 29 mmol/L (22-32); Chloride 100 mmol/L (98-107); D Dimer 2950 ng/mL (<230); Estimated Glomerular Filt Rate > 60.0 mL/min (>60); Globulin 3.3 g/dL (1.7-4.1); Glucose 119 mg/dL (80-110); HEMOLYSIS < 15 (0-50); Lipase 36 U/L (23-300); Magnesium 1.9 mg/dL (1.6-2.3); Potassium 3.6 mmol/L (3.4-5.1); Sodium 134 mmol/L (137-145); Total Protein 6.8 g/dL (6.3-8.2)
[2020-12-04 17:31] LABS: NT-proBNP (BNP-Adult 18+) 1560 pg/mL (<450)
--- NOTE | 2020-12-04 17:35 | DI.CT.S_ITS ---
PROCEDURE: CT ANGIO CHEST PE PROTOCOL INDICATIONS: chest pain, SOB, critical D Dimer, recent surgery TECHNIQUE: After the administration of intravenous contrast, 2 mm thick sections acquired from the pulmonary apices to the posterior costophrenic angles. 3-dimensional maximum intensity projection (MIP) coronal and sagittal reformats were then acquired through the thorax. For radiation dose reduction, the following was used: automated exposure control, adjustment of mA and/or kV according to patient size. COMPARISON: [facility], CR, XR CHEST 1V, 12/04/2020, 17:27. FINDINGS: Image quality: Excellent. Pulmonary arteries: Pulmonary arteries are normal in size, and demonstrate no intraluminal filling defects to suggest central pulmonary embolism. Lungs and pleura: There is a pleural-based 6 mm posteromedial left upper lobe pulmonary nodule seen on image 81, series 5. Lungs are otherwise clear. No pleural effusions or pneumothorax. Central and peripheral airways are patent. No septal thickening or nodularity. Mediastinum: Heart size is normal, without pericardial effusion. No mediastinal or hilar adenopathy. Thoracic aorta is normal in caliber and enhancement. Esophagus is normal in caliber, without hiatal hernia. Postsurgical changes from previous coronary bypass procedure. Multiple mediastinum sternotomy wires are present. Bones and chest wall: No suspicious bony lesions. Ribs and thoracic spine appear intact throughout. Thyroid gland appears unremarkable. No axillary or supraclavicular adenopathy. Abdomen: Visualized upper abdominal solid organs appear normal in the early arterial phase of enhancement. IMPRESSION: 1. Negative for acute pulmonary emboli. 2. Chest without acute cardiopulmonary abnormalities. 3. There is a 6 mm posteromedial left upper lobe pulmonary nodule. Consider follow-up noncontrast low-dose chest CT in 12 months to document stability. Dictated by: Dung Josue M.D. on 12/04/2020 at 18:12 Approved by: Dung Josue M.D. on 12/04/2020 at 18:23
[2020-12-04 17:36] LABS: CKMB % Relative Index 1.7 % (1.5-5.0); Creatine Kinase MB 3.32 ng/mL (<2.37)
[2020-12-04 17:40] LABS: C-Reactive Protein Quant 16.3 mg/dL (<1.0)
[2020-12-04 17:42] LABS: Troponin I 0.227 ng/mL (0.01-0.034)
[2020-12-04] MEDS: HEPARIN DRIP 25,000 UNIT/500 ML IV.SOLN 40.007 UNIT IV (18:16)
[2020-12-04] MEDS: HEPARIN 5,000 UNIT/ML VIAL 7500 UNIT IV (18:16)
[2020-12-04] MEDS: ASPIRIN 81 MG CHEW TAB 324 MG PO (19:21)
--- NOTE | 2020-12-04 20:28 | PC.NURSE ---
Silvia care given, brief was heavily saturated with pale pink urine. Pt with recent prostate procedure. Redness noted to silvia area, skin blanchable. Heparin gtt infusing. Dr Panda notified; order received to continue heparin drip. Will monitor.
--- NOTE | 2020-12-04 20:52 | PC.NURSE ---
Per discussion with Dr Panda, Heparin Drip decreased to 20ml/hr per Coronary Protocol. Transferred care to ambulance at rate of 20ml/hr of Heparin 25,000units/500ml.
== END 2020-12-04 21:00 | disposition short-term general hospital (02) ==
PROVIDERS: Emergency Provider Emergency Medicine; PCP Internal Medicine
DX: I21.4 Non-ST elevation (NSTEMI) myocardial infarction (principal); R06.02 Shortness of breath; Z86.73 Personal history of transient ischemic attack (TIA), and cerebral infarction without residual deficits; Z95.2 Presence of prosthetic heart valve; I10 Essential (primary) hypertension; E78.5 Hyperlipidemia, unspecified; R53.83 Other fatigue; Z20.822 Contact with and (suspected) exposure to COVID-19
CPT/HCPCS: 36415; 71045; 71275; 80053; 82550; 82553; 83690; 83735; 83880; 84484; 85025; 85379; 85610; 86140; 87040; 87635; 93005; 93010; 96365; 96366; 96375; 99284; 99291; C9803; J1644; J1940; J2930; Q9967